=== PATIENT | male | born 1980 | race Caucasian/White ===

== ENCOUNTER 2019-11-16 03:30 | Emergency (ER) | payer OTHER, SELFPAY ==
--- NOTE | 2019-11-16 03:32 | ED_ITS ---
HPI - General Adult General Chief complaint: Anxiety Stated complaint: had tingling in arms/pain in chest/thursday Time Seen by Provider: 11/16/19 03:32 Source: patient Mode of arrival: Ambulatory Limitations: no limitations History of Present Illness HPI narrative: Patient is a 39-year-old male with a history of atrial fibrillation longstanding history of gastroesophageal reflux disease. He is not currently on any medications for these issues. He states that he gets heartburn/pain in his chest almost on a daily basis. He states that he has tried medications in the past for his reflux disease but it has not provided any relief. He states he has never seen a GI doctor in the past. He does not drink alcohol. He occasionally uses a vape pen. He does not use anti-inflammatories or aspirin. He has no change in the color of his stool. He states that approximately 24 hours ago he had pain in his chest which caused an increase in hangs anxiety. He states that he checked his heart rate at the time any did not think that he was in AFib. He states that did radiate to his back. He is not currently having any symptoms. He has not had any symptoms in the past 24 hours. He states that the reason he came in to the emergency department now was because he wanted to get checked to make sure he was not having a heart attack. Patient currently is asymptomatic. Related Data Allergies Allergy/AdvReac Type Severity Reaction Status Date / Time hydrocodone [HYDROCODONE] AdvReac Severe ANGER Unverified 07/08/17 12:01 Review of Systems Constitutional Constitutional: Denies fever(s) Cardiovascular Cardiovascular: Reports chest pain, Denies rapid heart rate and Denies dyspnea Respiratory Respiratory: Denies dyspnea Gastrointestinal Gastrointestinal: Denies melena, Denies bloating, Denies change in bowel habits and Reports nausea Genitourinary Genitourinary: Denies dysuria Genitourinary: Denies dysuria Musculoskeletal Musculoskeletal: Denies arthralgias and Denies myalgias Integumentary/Breasts Skin/Breast: Denies lesions and Denies rash Neurologic Neurologic: Denies behavioral changes Psychiatric Psychiatric: Reports anxiety and Denies behavioral changes Hematologic/Lymphatic Hematologic/Lymphatic: Denies easy bleeding and Denies easy bruising Patient History Medical History Atrial fibrillation (Acute) Social History Smoking Status: Current every day smoker Exam Initial Vital Signs Initial Vital Signs: Vital Signs Temperature 97.8 F 11/16/19 03:39 Pulse Rate 73 11/16/19 03:39 Respiratory Rate 15 11/16/19 03:39 Blood Pressure 138/85 11/16/19 03:39 Pulse Oximetry 100 11/16/19 03:39 Const General: cooperative, comfortable and well developed Limitations: mental status not altered HENMT Head: normal to inspection and normocephalic Resp Effort & Inspection: normal respiratory effort Auscultation: clear to auscultation bilaterally Cardio Rate: regular rate Rhythm: regular rhythm Pulses: radial pulses present GI Inspection: non-distended Palpation: soft Skin Lesions: no lesions Rashes: no rashes Neuro General: patient alert and patient awake Cognition: normal cognition Speech: speech normal Extrem General: normal to inspection and capillary refill normal Psych Appearance: grossly normal and well kempt Scores GCS [place] coma scale eye opening: Spontaneous [place] coma scale verbal response: Orientated [place] coma scale motor response: Obey commands [place] coma scale total score: 15 Course Orders Ordered: ED Orders 11/16/19 03:34 XR chest 1V Stat 11/16/19 03:36 EKG-12 Lead Stat Vital Signs Vital signs: Vital Signs - 8 hr 11/16/19 03:39 Temperature 97.8 F Pulse Rate 73 Respiratory Rate 15 Blood Pressure 138/85 Pulse Oximetry 100 Medical Decision Making Imaging Data Chest x-ray: Attestation: I personally reviewed and interpreted this imaging study as follows: My Impression: No acute changes, no pneumonia, no pneumothorax ECG Data Attestation: I personally reviewed and interpreted this ECG as follows: Prior ECG tracings: not available for review Interpretation: Sinus rhythm Ventricular rate is 79 Normal axis Normal QRS Normal QTC No ST T wave changes MDM Narrative Medical decision making narrative: Patient is currently asymptomatic and has been for approximately 24 hours. Patient admits that he has had daily reflux disease that is uncontrolled. He states sometimes he gets so bad that he feels like he is having heart attack and that is what happened last evening is what brought him in emergency department today. His EKG is unremarkable. Chest x- ray is unremarkable. I do have low suspicion that his symptoms are ACS. We did discuss his reflux disease. Does not appear that he has any active GI bleeding. We did discuss the use of proton pump inhibitors. He is given examples of these medications. He was also asking for information about finding a primary doctor in this area. He states that his current primary doctor ?does not listen to me ?and has not send him to see a GI provided. I did inform him that it is important for him to see a GI provider. I do suspect that he should have a upper endoscopy. He does state that sometimes he has problems swallowing which I suspect are strictures related to his longstanding reflux disease. Feel patient be safely discharged home without further workup here in the ER. He was given return precautions and follow-up instructions. He expressed understanding and agreement. Discharge Plan Departure Patient Disposition: Home Clinical Impression: Gastroesophageal reflux disease Qualifiers: Esophagitis presence: esophagitis presence not specified Qualified Code(s): K21.9 - Gastro-esophageal reflux disease without esophagitis Instructions: Gastroesophageal Reflux Disease (Alternative Therapy), DI for Gastroesophageal Reflux Disease (GERD), GERD Diet Activity Restrictions/Additional Instructions: You can contact the health resource is coordinator here at [facility] at [phone]. This individual can help you establish a primary provider here in [place]. I do recommend that you talk with your current primary provider or your new primary provider about a referral to see Gastroenterology. Also recommend that you start taking what is called a proton pump inhibitor (PPI) examples of these medicines include Omeprazole/Prilosec Esomeprazole/Nexium Lansoprazole/Prevacid Pantoprazole/Protonix and others. These medicines can be purchased [id number]. I recommend that you choose 1 of these medications and start taking it on a daily basis like we discussed. Return to the emergency department for any new or worsening symptoms
--- NOTE | 2019-11-16 03:34 | DI.RAD.S_ITS ---
PROCEDURE: XR CHEST 1V INDICATIONS: chest pain TECHNIQUE: One view of the chest was acquired. COMPARISON: None. FINDINGS: Surgical changes and devices: None. Lungs and pleura: Lungs are clear. No pleural effusions or pneumothorax. Mediastinum: Mediastinal contours appear normal. Heart size is normal. Bones and chest wall: No suspicious bony lesions. Overlying soft tissues appear unremarkable. IMPRESSION: No acute cardiopulmonary abnormalities or focal airspace disease. Dictated by: Deacon Irwin M.D. on 11/16/2019 at 7:19 Approved by: Deacon Irwin M.D. on 11/16/2019 at 7:20
[2019-11-16 03:38] VITALS: PULSE 80; O2SAT 100
[2019-11-16 03:39] VITALS: BP 138/85; PULSE 73; RESP 15; TEMP 36.6; O2SAT 100; BMI 23.1
[2019-11-16 04:00] VITALS: BP 135/84; PULSE 71; RESP 22; O2SAT 98
== END 2019-11-16 04:13 | disposition home or self-care (01) ==
PROVIDERS: Emergency Provider Emergency Medicine
DX: K21.9 Gastro-esophageal reflux disease without esophagitis (principal); I48.91 Unspecified atrial fibrillation; R07.9 Chest pain, unspecified
CPT/HCPCS: 71045; 93005; 93010; 99283

== ENCOUNTER 2020-04-18 12:13 | Emergency (ER) | payer SELFPAY ==
[2020-04-18 12:15] VITALS: BP 123/85; PULSE 76; RESP 16; TEMP 36.2; O2SAT 100; BMI 23.2
--- NOTE | 2020-04-18 12:42 | ED.URI ---
HPI - URI/Sore Throat <CHER Doe - Last Filed: 04/18/20 12:59> General Chief Complaint: Upper Respiratory Symptoms Stated Complaint: Covid test-have cold symptoms Time Seen by Provider: 04/18/20 12:29 Source: patient Mode of arrival: Ambulatory Limitations: no limitations History of Present Illness HPI Narrative: This is a 39-year-old male, former smoker, who has past medical history for AFib from heavy alcohol use presents to ED with concerns for COVID infection. Patient reports chest congestion, sneezing, runny nose, watery eyes, mild body aches, productive cough, with slight short of breath for last 3 days. Patient does not know known COVID exposures. Patient does have environmental allergies to pollen with similar symptoms in the past. Patient denies headache, losing sense of smell or taste, abdominal pain, chest pain, diarrhea, or fever. Related Data Allergies Allergy/AdvReac Type Severity Reaction Status Date / Time hydrocodone [HYDROCODONE] AdvReac Severe ANGER Unverified 07/08/17 12:01 Review of Systems <CHER Doe - Last Filed: 04/18/20 12:59> Review of Systems Narrative: General: Denies fever, chills, fatigue, malaise, sweats. HEENT: See HPI Respiratory: See HPI Cardiovascular: Denies chest pain, palpitations, orthopnea, edema. Gastrointestinal: Denies nausea, vomiting, abdominal pain, diarrhea, constipation, melena. : Denies dysuria, frequency, incontinence, hematuria, urinary retention. Musculoskeletal: See HPI Skin: Denies rash, skin lesions, or other. Neurologic: Denies weakness, headache, numbness, change in speech, confusion, seizures, incoordination. Psychiatric: No concerning psychosocial issues. 12-point review of systems is negative except for those stated above. Patient History <CHER Doe - Last Filed: 04/18/20 12:59> Medical History (Updated 04/18/20 @ 12:53 by HCER Doe) Atrial fibrillation Social History Smoking Status: Former smoker Smoking Status: Former smoker tobacco type: vaping Substance Use Type: does not use Exam <CHER Doe - Last Filed: 04/18/20 12:59> Narrative Exam Narrative: GEN: Alert, oriented x 3, well appearing and nourished, and in no acute distress. Head: Normal cephalic, atraumatic. No scalp or temporal tenderness, palpable mass or rash. EYES: Pupils are equal, round, and reactive to light and accommodation. Extraocular muscles are intact bilaterally. There is no subconjunctival hemorrhage, exudate and sclera non-icteric. ENT: Hearing grossly intact. Airway patent. Neck: Trachea in midline. No JVD, non-tender without lymphadenopathy. No masses or thyroid megaly. Supple, non-tender and no meningeal signs. CARDIAC: Normal regular rate and rhythm without murmurs, gallops, or rubs. No chest wall tenderness. No peripheral edema, cyanosis or pallor. Capillary refill is less than 2 seconds. RESPIRATORY: Lungs are clear to auscultate bilaterally. No cough, wheezes, rales, or rhonchi. No stridor, respiratory distress, increase work of breathing, or accessary muscle used. ABD: Abdomen soft, nontender and non-distended. No guarding or rebound tenderness to palpate. Bowel sounds are normal in all 4 quadrants. There is no palpable masses or organomegaly. EXT: Full painless ROM of all extremities with no loss of sensation, strength, effusion or edema. SKIN: Warm, dry, normal color for patient. No erythema, lesions or rash over visible areas. BACK: Nontender without deformity or crepitance. No flank tenderness. NEUROLOGICAL: Alert and oriented to place, time and person. Sensation and motor function intact bilaterally. No facial droops, dysphasia. PSYCHIATRIC: Good judgement and reason, without hallucinations, abnormal affect or abnormal behaviors during the examination. Patient is not suicidal. Initial Vital Signs Initial Vital Signs: Vital Signs Temperature 97.1 F L 04/18/20 12:15 Pulse Rate 76 04/18/20 12:15 Respiratory Rate 16 04/18/20 12:15 Blood Pressure 123/85 04/18/20 12:15 Pulse Oximetry 100 04/18/20 12:15 <Costa Bahena DO - Last Filed: 04/18/20 13:03> Initial Vital Signs Initial Vital Signs: Vital Signs Temperature 97.1 F L 04/18/20 12:15 Pulse Rate 76 04/18/20 12:15 Respiratory Rate 16 04/18/20 12:15 Blood Pressure 123/85 04/18/20 12:15 Pulse Oximetry 100 04/18/20 12:15 Scores <Otoniel MesaCHER delatorre - Last Filed: 04/18/20 12:59> GCS [place] coma scale eye opening: Spontaneous [place] coma scale verbal response: Orientated [place] coma scale motor response: Obey commands [place] coma scale total score: 15 Course <Otoniel MesaCHER delatorre - Last Filed: 04/18/20 12:59> Orders Ordered: ED Orders 04/18/20 12:26 COVID19 Stat Vital Signs Vital signs: Vital Signs - 8 hr 04/18/20 12:15 Temperature 97.1 F L Pulse Rate 76 Respiratory Rate 16 Blood Pressure 123/85 Pulse Oximetry 100 <Costa Bahena DO - Last Filed: 04/18/20 13:03> Orders Ordered: ED Orders 04/18/20 12:26 COVID19 Stat Vital Signs Vital signs: Vital Signs - 8 hr 04/18/20 12:15 Temperature 97.1 F L Pulse Rate 76 Respiratory Rate 16 Blood Pressure 123/85 Pulse Oximetry 100 MDM - URI/Sore Throat <Otoniel MesaCHER delatorre - Last Filed: 04/18/20 12:59> Differential Diagnosis Differential diagnosis: Likely upper respiratory infection and viral infection Medical Records Attestation: I reviewed the patient's medical records. Lab Data Attestation: I reviewed the patient's lab results. Labs: Lab Results 04/18/20 Range/Units 12:26 SARS-CoV-2 (PCR) Negative (Negative) MDM Narrative Medical decision making narrative: This is a 39-year-old male who has concerns for COVID infection. COVID test is negative. Physical exam is unremarkable. Advise continue with social distancing and good hand hygiene. His symptoms may due to seasonal allergy vs upper respiratory infection. Advised supportive care treatment at this time. Return precautions were discussed with patient and he verbalized understanding in agreement with the treatment plan. <Costa Bahena DO - Last Filed: 04/18/20 13:03> Lab Data Labs: Lab Results 04/18/20 Range/Units 12:26 SARS-CoV-2 (PCR) Negative (Negative) Discharge Plan Departure Patient Disposition: Home Clinical Impression: Upper respiratory infection Qualifiers: URI type: unspecified URI Qualified Code(s): J06.9 - Acute upper respiratory infection, unspecified Instructions: DI for Viral Upper Respiratory Infection -- Adult Activity Restrictions/Additional Instructions: You have been diagnosed with [upper respiratory infection. COVID test was negative. The symptoms you describe is similar to seasonal allergy as well.]. What to do: *Take your medications as directed. *Follow up with your primary care provider in 2-3 days, call for an appointment. Let them know you were seen in the ED and that we asked you to be seen in follow up. *Return to ED if you have any new, worsening, or concerning symptoms, such as [fever, short of breath, chest pain, unable to tolerate fluids, or any acute concerns]. Referrals: Memo Appiah DO [Primary Care Provider] - <Costa Bahena DO - Last Filed: 04/18/20 13:03> Cosign ED Attending Cosignature Attestation: Dr Bahena Co-Sign Statement: I was available for consultation during this patient's emergency department visit. This chart is signed by myself for administrative purposes only. I did not have direct contact with this patient during this visit. They were seen independently by the APC.
[2020-04-18 12:50] LABS: COVID19 -Nasal RAPID Negative (Negative)
== END 2020-04-18 13:01 | disposition home or self-care (01) ==
PROVIDERS: Emergency Medicine; Emergency Provider Nurse Practitioner Family; PCP Family Medicine
DX: J06.9 Acute upper respiratory infection, unspecified (principal); R05 Cough; R06.02 Shortness of breath; I48.91 Unspecified atrial fibrillation; Z20.822 Contact with and (suspected) exposure to COVID-19
CPT/HCPCS: 87635; 99281; 99282; C9803

== ENCOUNTER 2020-07-18 18:02 | Observation (INO) | payer OTHER, SELFPAY ==
[2020-07-18] VITALS (10 sets, daily range): BP systolic 111–120; BP diastolic 59–83; PULSE 67–86; RESP 14–52; TEMP 36.3–36.6; O2SAT 99–100; BMI 23.7
--- NOTE | 2020-07-18 18:13 | DI.RAD.S_ITS ---
PROCEDURE: XR CHEST 1V INDICATIONS: chest pain TECHNIQUE: One view of the chest was acquired. COMPARISON: [facility], CR, XR CHEST 1V, 11/16/2019, 3:36. FINDINGS: Surgical changes and devices: None. Lungs and pleura: No consolidation. Minimal prominence of the pulmonary interstitial markings similar to the prior exam from 2019. No pleural effusions or pneumothorax. Mediastinum: Mediastinal contours appear normal. Heart size is normal. Bones and chest wall: No suspicious bony lesions. Overlying soft tissues appear unremarkable. IMPRESSION: No acute cardiopulmonary abnormality. Dictated by: Carlos Multani M.D. on 07/18/2020 at 18:24 Approved by: Carlos Multani M.D. on 07/18/2020 at 18:25
[2020-07-18 18:25] LABS: Add Manual Diff / Slide Review NO; Basophils Absolute Auto 100 /uL (0-100); Basophils Percent Auto 1.2 % (0-2); Eosinophils Absolute Auto 200 /uL (0-450); Eosinophils Percent Auto 2.8 % (2-4); Hematocrit 45.9 % (41-53); Lymphocytes Absolute Auto 1500 /uL (1100-4500); Lymphocytes Percent Auto 27.4 % (25-40); Mean Corpuscular HGB Conc 34.9 % (30-36); Mean Corpuscular Hemoglobin 29.7 PG (26-34); Mean Corpuscular Volume 85.1 fL (80-100); Monocytes Absolute Auto 500 /uL (0-900); Monocytes Percent Auto 9.2 % (3-14); Neutrophils Absolute Auto 3400 /uL (1500-7000); Neutrophils Percent Auto 59.4 % (50-75); Platelet Count 188 X10^3/uL (150-400); Red Blood Cell Count 5.39 X10^6/uL (4.5-5.9); Red Cell Distribution Width 12.7 % (11.6-14.8); White Blood Cell Count 5.7 X10^3/uL (4.5-11.0)
[2020-07-18 18:32] LABS: Prothrombin Time 11.5 SECONDS (10.1-12.7)
[2020-07-18 18:35] LABS: PTT Partial Thromboplastin Tim 34 SECONDS (26.4-36.2)
[2020-07-18 18:42] LABS: Alanine Aminotransferase 33 IU/L (<50); Albumin 3.9 g/dL (3.5-5.0); Albumin Globulin Ratio 1.4 (1.0-2.8); Alkaline Phosphatase 91 U/L (38-126); Aspartate Aminotransferase 31 IU/L (17-59); BUN Creatinine Ratio 20.5 (6-22); Bilirubin Total 0.6 mg/dL (0.2-1.3); Blood Urea Nitrogen 17 mg/dL (9-20); Carbon Dioxide 26 mmol/L (22-32); Chloride 106 mmol/L (98-107); Creatine Kinase 94 U/L (55-170); Estimated Glomerular Filt Rate > 60.0 mL/min (>60); Globulin 2.8 g/dL (1.7-4.1); Glucose 86 mg/dL (70-100); HEMOLYSIS 19 (0-50); Lipase 55 U/L (23-300); Potassium 4.4 mmol/L (3.4-5.1); Sodium 139 mmol/L (137-145); Total Protein 6.7 g/dL (6.3-8.2)
[2020-07-18 18:53] LABS: Troponin I < 0.012 ng/mL (0.01-0.034)
--- NOTE | 2020-07-18 19:31 | ED_ITS ---
HPI - Chest Pain General Chief Complaint: Chest Pain Stated Complaint: cardiac pain Time Seen by Provider: 07/18/20 19:03 Source: patient Mode of arrival: Ambulatory Limitations: no limitations History of Present Illness HPI narrative: Patient is a 39-year-old male. No prior cardiac history diagnosis. Had a father who had a heart attack and at the age of 48 here for evaluation of left-sided chest pain. Patient states that a couple days ago he was at a baseball game when he developed left-sided chest discomfort. Was hard for him to describe exactly how he fell but he did state that it was a pressure. It lasted for at least an hour and did get somewhat worse when he was walking back to his car. He then improved/resolved after he was resting in his car for period of time. Since that time he has had off and on left-sided chest discomfort. His last episode was last evening. He states that it did not get worse with palpation or movement or breathing. Has never had risk stratification testing despite his father having early onset of coronary artery disease. Related Data Home Medications Medication Instructions Recorded Confirmed No Known Home Medications 07/18/20 07/18/20 Allergies Allergy/AdvReac Type Severity Reaction Status Date / Time hydrocodone [HYDROCODONE] AdvReac Severe ANGER Verified 07/18/20 18:09 Review of Systems Constitutional Constitutional: Denies fatigue, Denies fever(s) and Denies headache(s) Eyes Eyes: Denies change in vision ENT Ears, Nose, Mouth, and Throat: Denies headache(s) and Denies sore throat Cardiovascular Cardiovascular: Reports chest pain and Denies dyspnea Respiratory Respiratory: Denies dyspnea Gastrointestinal Gastrointestinal: Denies abdominal pain, Denies nausea and Denies vomiting Genitourinary Genitourinary: Denies dysuria Genitourinary: Denies dysuria Musculoskeletal Musculoskeletal: Denies arthralgias and Denies myalgias Integumentary/Breasts Skin/Breast: Denies rash Neurologic Neurologic: Denies behavioral changes and Denies headache(s) Psychiatric Psychiatric: Denies behavioral changes Endocrine Endocrine: Denies fatigue Hematologic/Lymphatic On Anticoagulants: No Allergic/Immunologic Allergic/Immunologic: Denies urticaria Patient History Medical History Atrial fibrillation Personal history of alcoholism Tobacco abuse Surgical History (Updated 07/18/20 @ 22:18 by JANE Williamson) History of lumbar discectomy Family History (Updated 07/18/20 @ 22:18 by JANE Williamson) Father Myocardial infarction Mother Depression Dementia Social History household members: spouse Smoking Status: Former smoker alcohol intake: former Smoking Status: Former smoker tobacco type: vaping Substance Use Type: marijuana Exam Initial Vital Signs Initial Vital Signs: Vital Signs Temperature 97.8 F 07/18/20 18:10 Pulse Rate 72 07/18/20 18:10 Respiratory Rate 14 07/18/20 18:10 Blood Pressure 120/78 07/18/20 18:10 Pulse Oximetry 99 07/18/20 18:10 Const General: cooperative, comfortable and well developed Limitations: mental status not altered HENMT Head: normal to inspection and normocephalic Chest Chest: No crepitus and No tenderness Resp Effort & Inspection: normal respiratory effort Auscultation: clear to auscultation bilaterally Cardio Rate: regular rate Rhythm: regular rhythm GI Inspection: non-distended Palpation: soft Skin Lesions: no lesions Rashes: no rashes Neuro General: patient alert, patient awake, patient oriented x3 and moves all extremities Extrem General: normal to inspection, capillary refill normal and No edema Psych Appearance: grossly normal and well kempt Scores HEART Score Heart Score history: Moderately Suspicious Heart Score EKG: Non-Specific repolarization disturbance Heart Score Age: < 45 years old Heart Score risk factors: 1-2 risk factors Heart Score troponin: < or = to normal limit Heart Score Total: 3 Course Orders Ordered: ED Orders 07/18/20 18:13 XR chest 1V Stat EKG-12 Lead Stat 07/18/20 18:14 Complete Blood Count AUTO DIFF Stat Comprehensive Metabolic Panel Stat Lipase Stat Partial Thromboplastin Time Stat Prothrombin Time INR Stat Troponin & CK Cardiac Panel Stat 07/18/20 18:41 Lipid Panel Routine 07/18/20 19:43 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) Stat 07/18/20 20:24 EC echo doppler complete Urgent 07/19/20 00:00 Troponin I Q6H 07/19/20 06:00 Troponin I Q6H Acetaminophen (Acetaminophen 325 Mg Tablet) 650 mg PO Q6HR PRN PRN Reason: Fever/Mild Pain (1-3) Enoxaparin Sodium (Enoxaparin 40 Mg/0.4 Ml Syringe) 40 mg SUBCUT DAILY ELLE Lorazepam (Lorazepam 0.5 Mg Tablet) 0.5 mg PO Q4HR PRN PRN Reason: Anxiety Morphine Sulfate (Morphine 2 Mg/Ml Inj) 2 mg IV Q5MIN PRN PRN Reason: Chest Pain Naloxone HCl (Naloxone 0.4 Mg/Ml Vial) 0.2 mg IV Q2MIN PRN PRN Reason: Opiate Reversal Nitroglycerin (Nitroglycerin 0.4 Mg Sl Tab) 0.4 mg SL [id number] PRN PRN Reason: Chest Pain Discontinued Medications Aspirin (Aspirin 81 Mg Chew Tab) 324 mg PO NOW ONE Stop: 07/18/20 19:32 Last Admin: 07/18/20 19:42 Dose: 324 mg Documented by: HERVE Vital Signs Vital signs: Vital Signs - 8 hr 07/18/20 18:10 Temperature 97.8 F Pulse Rate 72 Respiratory Rate 14 Blood Pressure 120/78 Pulse Oximetry 99 MDM - Chest Pain Lab Data Attestation: I reviewed the patient's lab results. Result diagrams: 07/18/20 18:14 07/18/20 18:14 Labs: Lab Results 07/18/20 07/18/20 07/18/20 Range/Units 18:14 18:14 18:14 WBC 5.7 (4.5-11.0) X10^3/uL RBC 5.39 (4.5-5.9) X10^6/uL Hgb 16.0 (13.5-17.5) g/dL Hct 45.9 (41-53) % MCV 85.1 (80-100) fL MCH 29.7 (26-34) PG MCHC 34.9 (30-36) % RDW 12.7 (11.6-14.8) % Plt Count 188 (150-400) X10^3/uL Neut % (Auto) 59.4 (50-75) % Lymph % (Auto) 27.4 (25-40) % [place] % (Auto) 9.2 (3-14) % Eos % (Auto) 2.8 (2-4) % Baso % (Auto) 1.2 (0-2) % Neut # (Auto) 3400 (2658-9968) /uL Lymph # (Auto) 1500 (6589-8013) /uL [place] # (Auto) 500 (0-900) /uL Eos # (Auto) 200 (0-450) /uL Baso # (Auto) 100 (0-100) /uL PT 11.5 (10.1-12.7) SECONDS INR 1.0 (0.9-1.3) APTT 34 (26.4-36.2) SECONDS Sodium 139 (137-145) mmol/L Potassium 4.4 (3.4-5.1) mmol/L Chloride 106 (98-107) mmol/L Carbon Dioxide 26 (22-32) mmol/L BUN 17 (9-20) mg/dL Creatinine 0.83 (0.66-1.25) mg/dL Estimated GFR > 60.0 (>60) mL/min BUN/Creatinine Ratio 20.5 (6-22) Glucose 86 (70-100) mg/dL Calcium 9.0 (8.4-10.2) mg/dL Magnesium (1.6-2.3) mg/dL Total Bilirubin 0.6 (0.2-1.3) mg/dL AST 31 (17-59) IU/L ALT 33 (<50) IU/L Alkaline Phosphatase 91 (38-126) U/L Total Creatine Kinase 94 (55-170) U/L CK-MB (CK-2) TNP CK-MB (CK-2) Rel Index TNP Troponin I < 0.012 (0.01-0.034) ng/mL Total Protein 6.7 (6.3-8.2) g/dL Albumin 3.9 (3.5-5.0) g/dL Globulin 2.8 (1.7-4.1) g/dL Albumin/Globulin Ratio 1.4 (1.0-2.8) Triglycerides (35-150) mg/dL Cholesterol (140-199) mg/dL LDL Cholesterol, Calc (<100) mg/dL HDL Cholesterol (40-60) mg/dL Lipase 55 (23-300) U/L SARS-CoV-2 (PCR) (Negative) 07/18/20 07/18/20 07/18/20 Range/Units 18:41 18:41 19:43 WBC (4.5-11.0) X10^3/uL RBC (4.5-5.9) X10^6/uL Hgb (13.5-17.5) g/dL Hct (41-53) % MCV (80-100) fL MCH (26-34) PG MCHC (30-36) % RDW (11.6-14.8) % Plt Count (150-400) X10^3/uL Neut % (Auto) (50-75) % Lymph % (Auto) (25-40) % [place] % (Auto) (3-14) % Eos % (Auto) (2-4) % Baso % (Auto) (0-2) % Neut # (Auto) (8728-5087) /uL Lymph # (Auto) (3678-9869) /uL [place] # (Auto) (0-900) /uL Eos # (Auto) (0-450) /uL Baso # (Auto) (0-100) /uL PT (10.1-12.7) SECONDS INR (0.9-1.3) APTT (26.4-36.2) SECONDS Sodium (137-145) mmol/L Potassium (3.4-5.1) mmol/L Chloride (98-107) mmol/L Carbon Dioxide (22-32) mmol/L BUN (9-20) mg/dL Creatinine (0.66-1.25) mg/dL Estimated GFR (>60) mL/min BUN/Creatinine Ratio (6-22) Glucose (70-100) mg/dL Calcium (8.4-10.2) mg/dL Magnesium 2.1 (1.6-2.3) mg/dL Total Bilirubin (0.2-1.3) mg/dL AST (17-59) IU/L ALT (<50) IU/L Alkaline Phosphatase (38-126) U/L Total Creatine Kinase (55-170) U/L CK-MB (CK-2) CK-MB (CK-2) Rel Index Troponin I (0.01-0.034) ng/mL Total Protein (6.3-8.2) g/dL Albumin (3.5-5.0) g/dL Globulin (1.7-4.1) g/dL Albumin/Globulin Ratio (1.0-2.8) Triglycerides 132 (35-150) mg/dL Cholesterol 179 (140-199) mg/dL LDL Cholesterol, Calc 106 H (<100) mg/dL HDL Cholesterol 47 (40-60) mg/dL Lipase (23-300) U/L SARS-CoV-2 (PCR) Negative (Negative) Imaging Data Chest x-ray: Radiologist's Impression: [facility] [place] [id number] ReportSigned Patient: Shadi Mueller WMR#: [id number]: [id number]:[id number]/Sex: 39 / MDate of Service: 07/18/20Loc: EDAccession Number: [id number] Procedure: XR chest 1V Ordering Provider: Costa Bahena D.O. PROCEDURE: XR CHEST 1V INDICATIONS: chest pain TECHNIQUE: One view of the chest was acquired. COMPARISON: [facility], , XR CHEST 1V, 11/16/2019, 3:36. FINDINGS: Surgical changes and devices: None. Lungs and pleura: No consolidation. Minimal prominence of the pulmonary interstitial markings similar to the prior exam from 2019. No pleural effusions or pneumothorax. Mediastinum: Mediastinal contours appear normal. Heart size is normal. Bones and chest wall: No suspicious bony lesions. Overlying soft tissues appear unremarkable. IMPRESSION: No acute cardiopulmonary abnormality. Dictated by: Carlos Multani M.D. on 07/18/2020 at 18:24 Approved by: Carlos Multani M.D. on 07/18/2020 at 18:25 ECG Data Attestation: I personally reviewed and interpreted this ECG as follows: Prior ECG tracings: not available for review Interpretation: Sinus rhythm Ventricular rate is 70 Normal axis Normal QRS QTC 4-3 Changes consistent with early repolarization Nonspecific ST T wave changes MDM Narrative Medical decision making narrative: Patient is asymptomatic. Has nonspecific changes on his EKG. This last episode of chest discomfort was last evening. His troponin is negative although he has not had any discomfort and almost 24 hours. He does have a significant family history with father dying of a heart attack at the age of 48. Patient has never had any risk stratification prior to today. Given his symptoms over the past couple days and his family history I do feel admission to the hospital for stress testing is warranted. I discussed this with him and he agrees with this. Discussed the case with LEDA Goodman the night Hospital provider who will admit for further evaluation and treatment. Discharge Plan Departure Patient Disposition: Admitted as Observation Clinical Impression: Chest pain Admit Date/Time: 07/18/20 20:20 Admit Provider: Almaz Goodman
[2020-07-18] MEDS: ASPIRIN 81 MG CHEW TAB 324 MG PO (19:42)
--- NOTE | 2020-07-18 20:24 | DI.ECHO.S_ITS ---
[facility] +---------+ : : [address] [place] : : : : [id number] : : : : Phone: [phone]+ Echocardiogram Report + + :Name: CUONG HASSAN Study Date: 07/19/2020 Height: 67 in : :[facility] ReadingLocation: Weight: 190 lb : : Gender: Male BSA: 2.0 m2 : :: 1980 Age: 39 yrs BP: 108/56 mmHg: :Reason For Study: CHEST PRESSURE : :Ordering Physician: NAVID, : :ALANA Performed By: Peggy Flor : :Referring: ALANA SHOEMAKER : + + Interpretation Summary 1) Normal left ventricular size and thickness with mildly reduced function (EF 45-50%). 2) Upper normal right ventricular size with low normal function. 3) No significant valvular abnormalities. 4) No prior Echo available for comparison. Procedure: A two-dimensional transthoracic echocardiogram with color flow and Doppler was performed. The study quality was technically adequate. The patient had an echocardiogram, but there is no comparison study available. The patient was in sinus bradycardia with heart rates between 55-66 bpm during the exam. Left Ventricle: The left ventricle is normal in size and wall thickness. The ejection fraction is estimated to be 45-50%. Diastolic parameters suggest probable normal left ventricular diastolic function and normal filling pressures. Right Ventricle: The right ventricle is at the upper limits of normal in size. Right ventricular systolic function is at the lower limits of normal. Atria: The left atrial size is normal. Right atrial size is normal. There is no Doppler evidence for an interatrial shunt. Mitral Valve: The mitral valve is normal in structure and function. There is no mitral regurgitation noted. Aortic Valve: The aortic valve is trileaflet. The aortic valve opens well. There is no aortic valve stenosis. No aortic regurgitation is present. Tricuspid Valve: The tricuspid valve is normal in structure and function. Pulmonary artery pressures cannot be estimated because of the lack of a measurable TR jet velocity but the IVC suggests a CVP of around 8 mmHg. There is trace tricuspid regurgitation. Pulmonic Valve: The pulmonic valve is not well visualized. There is no pulmonic valvular regurgitation. Great Vessels: The aortic root is normal size. The dimensions of the ascending aorta are normal. The IVC is dilated (diameter is greater than 2.1 cm) yet it collapses greater than 50% with a sniff. This suggests a right atrial pressure of 8 mm Hg. Pericardium/ Pleura There is no pericardial effusion. There is no pleural effusion. MMode/2D Measurements & Calculations LVIDd: 4.5 cm LVOT diam: 2.5 cm LVIDs: 3.2 cm Ao root diam: 3.6 cm FS: 28.3 % asc Aorta Diam: 2.9 cm EPSS: 0.52 cm Ao Arch Diam (Prox Trans): 2.5 cm IVSd: 0.86 cm LVPWd: 0.91 cm LV burgos. diameter/BSA (cm/m^2): 2.3 LV sys. diameter/BSA (cm/m^2): 1.6 LA A2 area: 18.2 cm2 RA long axis: 4.9 cm LA A4 area: 21.4 cm2 RA area: 16.1 cm2 LA length (vol): 5.6 cm RA vol: 45.4 ml LA vol: 58.5 ml RA : 22.9 ml/m2 LA vol index: 29.6 ml/m2 IVC diam: 2.1 cm RVD1 (basal): 4.0 cm TAPSE: 1.7 cm Doppler Measurements & Calculations Ao V2 max: 80.0 cm/sec LVOT Max Alonzo: 66.6 cm/sec Ao V2 mean: 58.9 cm/sec LV V1 max P.8 mmHg Ao max P.6 mmHg LV V1 VTI: 15.1 cm Ao mean P.5 mmHg DENG(I,D): 3.9 cm2 Ao V2 VTI: 18.8 cm DENG(V,D): 4.0 cm2 sev ratio: 0.80 DENG indexed to BSA (cm^2/m^2): 2.0 MV E max alonzo: 49.0 cm/sec PA pr(Accel): 29.3 mmHg MV A max alonzo: 36.7 cm/sec MV E/A: 1.3 Med Peak E' Alonzo: 9.7 cm/sec E/E' med: 5.0 Lat Peak E' Alonzo: 14.8 cm/sec E/E' lat: 3.3 E/e' average: 4.2 MV dec time: 0.29 sec SV(LVOT): 73.0 ml Reading Physician:09:10 AM
--- NOTE | 2020-07-18 20:29 | P.HP_ITS ---
History of Present Illness History of Present Illness Date Patient Seen: 07/18/20 Time Patient Seen: 20:29 Chief complaint: cardiac pain Narrative: Patient is a 39-year-old male Shadi Mueller who presented to the ED with complaints of a chest pressure. Patient's only medical history is for atrial fibrillation, although a notable family history father of an LA at 48 years of age. Patient states a couple days ago he was sitting at a baseball game when he developed left-sided chest pressure that lasted for approximately a couple hours and did not vary based on activity but finally resolved while he was driving in the car he has continued to have several episodes of left-sided chest pressure over the last couple days that come and go, he notes he has ex perienced this in the past and never sought treatment. The patient describes the pain/pressure as sharp, without radiation it varies in intensity usually maintaining and pain of 10/10, and is not relieved by rest or exacerbated by activity. Patient denies diaphoresis, weakness, shortness of breath, headache, swelling of hands or feet, lack of coordination or balance during these chest pain or pressure events. Patient states ?I just get really bad anxiety with this pressure and I have difficulty walking related to the anxiety not weakness. Patient states that he was diagnosed with atrial fibrillation some 20 years ago, he saw Dr. belle rubio 4 years ago for atrial fibrillation and patient was not placed on any anticoagulation at that time. Patient states he felt an episode of atrial fibrillation around [email or web address] at work of 2020 but has had no further issues and does not feel any atrial fib at this time. 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 Patient has a brother and sister with no notable medical history, specifically no cardiovascular history. Patient's admit vitals temp 97.8?, BP 120/78, HR 72, R 14, O2 saturation 99% on room air. All patient's labs CBC CMP, troponins are within normal, EKG normal sinus rhythm without ST or T-wave changes per Dr. Bahena in the ED interpretation, CXR: no acute cardiopulmonary abnormalities noted. 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 Environment Been Physically Hurt or No Threatened By a Person Tobacco & Substance use: Smoking Status Former smoker quit cigarettes 5 years ago, currently vapes with nicotine and smokes marijuana regularly, patient notes history of alcoholism and reports recovery for 2.5 years although notes that he continues to drink occasionally on the weekends. Substance Use Type marijuana Meds Home Medications and Allergies Home Medications Medication Instructions Recorded Confirmed Type No Known Home Medications 07/18/20 07/18/20 History Allergies Allergy/AdvReac Type Severity Reaction Status Date / Time hydrocodone [HYDROCODONE] AdvReac Severe ANGER Verified 07/18/20 18:09 Review of Systems Review of Systems ROS: Yes All systems reviewed with the patient and are negative except as otherwise documented Exam Vital Signs (past 8 hours): - 07/18/20 18:10 Temperature 97.8 F Pulse Rate 72 Respiratory Rate 14 Blood Pressure 120/78 Pulse Oximetry 99 Oxygen Delivery Method Room Air Narrative Exam Narrative: General: Patient is a well-developed, well-nourished in no distress at this time. HEENT: Normocephalic, atraumatic, extraocular muscles intact, oral pharynx is clear and mucous membranes are moist. Neck is supple and symmetric, trachea is midline, no adenopathy, no thyroid enlargement, nontender, no masses palpated. Negative for JVD Chest: Normal AP diameter and contour without kyphoscoliosis, no nasal flaring, retractions, or tachypneic labored Lungs: Auscultation of all lung linda are clear without adventitious sounds, wheezes, rhonchi, or rales. Cardio: S1 & S2 with regular rate and rhythm without murmur, rubs, or gallops, no carotid bruit, no cardiac pulsations present. Abdomen: Soft nontender, negative for organomegaly, or masses. Bowel sounds are present in all 4 quadrants without guarding or rebound, no CVA tenderness. Musculoskeletal: Muscle strength and tone are equal within normal limits, no deformity, crepitus, effusions, cyanosis, clubbing or edema present. Full range of motion intact radial and pedal pulses are normal. Skin: Warm dry and intact without rashes, ulcerations or petechiae. Neuro: Alert and orientated x3, strength is +5/5 in all extremities, sensation to touch intact, no gross deficits noted of cranial nerves. Psych: Patient has a well-kept appearance, appropriate affect, mental status attitude thought context and judgment are appropriate for age. Objective Labs Result Diagrams: 07/18/20 18:14 07/18/20 18:14 Labs: Laboratory Results - last 24 hr 07/18/20 07/18/20 07/18/20 18:14 18:14 18:14 WBC 5.7 RBC 5.39 Hgb 16.0 Hct 45.9 MCV 85.1 MCH 29.7 MCHC 34.9 RDW 12.7 Plt Count 188 Neut % (Auto) 59.4 Lymph % (Auto) 27.4 [place] % (Auto) 9.2 Eos % (Auto) 2.8 Baso % (Auto) 1.2 Neut # (Auto) 3400 Lymph # (Auto) 1500 [place] # (Auto) 500 Eos # (Auto) 200 Baso # (Auto) 100 PT 11.5 INR 1.0 APTT 34 Sodium 139 Potassium 4.4 Chloride 106 Carbon Dioxide 26 BUN 17 Creatinine 0.83 Estimated GFR > 60.0 BUN/Creatinine Ratio 20.5 Glucose 86 Calcium 9.0 Total Bilirubin 0.6 AST 31 ALT 33 Alkaline Phosphatase 91 Total Creatine Kinase 94 CK-MB (CK-2) TNP CK-MB (CK-2) Rel Index TNP Troponin I < 0.012 Total Protein 6.7 Albumin 3.9 Globulin 2.8 Albumin/Globulin Ratio 1.4 Lipase 55 Assessment & Plan Assessment & Plan narrative: Patient is a 39-year-old male admitted for observation regarding acute on chronic left-sided chest pain/pressure due to patient's history of atrial fibrillation without anticoagulation therapy, history of tobacco, marijuana, and alcohol abuse, ongoing vaping which can impair patient's oxygenation and contribute to a cardiopulmonary event. This in addition to a family history of his father's age 48 of myocardial infarction. Patient to have echo and stress test tomorrow, complete risk stratifications, if all findings are within normal limits the patient is expected to go home tomorrow. 1. Acute chest pain/pressure, nonradiating, -recurrent, acute on chronic, present on admission in ED -Rule out myocardial ischemia/infarction, ACS, CAD, aortic dissection. Suspect pain to be musculoskeletal in nature exacerbated by patient's anxiety, but will rule out cardiovascular risks. -echo and stress ordered for tomorrow -Patient is a former smoker but continues to vape and smokes marijuana. Family history: father of an LA at age 48. Patient's admit vitals temp 97.8?, BP 120/78, HR 72, R 14, O2 saturation 99% on room air. All patient's labs CBC CMP, Mg, Lipase, cholesterol, & troponins are within normal, EKG normal sinus rhythm without ST or T-wave changes per Dr. Bahena in the ED interpretation, chest x-ray no acute cardiopulmonary abnormalities noted. Heart score: 3 --patient to be admitted for observation, monitored on tele medicine, vital signs q.4 hours, intake and output monitored Q shift, weight measure daily, diet:Regular, IV: Hep lock -Serial troponins 1 Q 6 hours x3, Ordered:proBNP, TSH, lipids, UA and chest x- ray. -sublingual nitro glycerin 0.4 mg, aspirin 325 mg -In the event of persistent unrelenting chest pain: Order CTA or V/Q scan or CT. Metoprolol 5 mg IV or Cardizem 5 mg to 10 mg IV Q 15 minutes, Beta-dale, nitrates, MS, heparin, Plavix PERC score:0 (PE can be ruled out), Shashi Vasc score: 0, heart score:3 Monitor for hypertensive emergencies with acute end-organ damage, ventricular tachycardia, unstable SVT, hypertension, angina or LA, heart failure, renal function. Shashi Vasc score: - Goals: reducing blood pressure over 24-48 hours, not more than 25-30% in the 1st 24 hours. O2 to keep O2 sats greater than 92% potassium > 4 and Mag > 2 2. Atrial fibrillation, chronic, not present on admission, stable -patient not in AFib upon admit. Patient not on anticoagulation therapy - placed on telemetry. 3. Anxiety, acute on chronic, present on admission -denies suicidal ideation, Anxiety 12/07 -ordered Ativan as needed 4. Vaping with nicotine dependence, acute on chronic, secondary to tobacco and alcohol abuse history, in the setting of marijuana use, not present on admission -encouraged Vaping cessation. Code status: Full code Surrogate decision maker: Spouse Sienna MENDOZA PCR: Negative VTE/DVT prophylaxis: Lovenox 40 mg and SCDs Scores GCS [place] coma scale eye opening: Spontaneous [place] coma scale verbal response: Orientated [place] coma scale motor response: Obey commands [place] coma scale total score: 15 CHADS-VASc Congestive heart failure: no Hypertension: no Age 75 years or older: no Diabetes mellitus: no Stroke, TIA, or TE: no Vascular disease: no Age 65 to 74 years: no Sex category (female): Male CHADS-VASc Score: 0 Wells' Criteria for PE Clinical signs and symptoms of DVT: No PE is #1 Dx or equally likely: No Heart rate > 100: No Immobilization at least 3 days or surg in previous 4 weeks: No History of PE or DVT: No Hemoptysis: No Malignancy w/Treatment within 6 months or palliative: No Wells' PE Score total: 0
[2020-07-18 20:51] LABS: Cholesterol 179 mg/dL (140-199); HDL Cholesterol 47 mg/dL (40-60); LDL Cholesterol Calculated 106 mg/dL (<100); Magnesium 2.1 mg/dL (1.6-2.3); Triglycerides 132 mg/dL (35-150)
[2020-07-18 21:24] LABS: COVID19 - ADMIT (NP swab/PCR) Negative (Negative)
--- NOTE | 2020-07-18 22:27 | PC.NURSE ---
Pt admitted per stretcher from ED for dx chest pain. VSS, pt denies pain at this time. States he is extremely anxious as he watched his father of a heart attack at age 49 when he was 2. Rates his anxiety as a 9/10. Monitor shows NSR, pt has stated history of afib, takes no home meds.
[2020-07-18] MEDS: LORazepam 0.5 MG TABLET PO (22:41)
[2020-07-19 00:18] VITALS: BP 111/59; PULSE 84; RESP 19; TEMP 35.8; O2SAT 99
[2020-07-19 00:57] LABS: NT-proBNP (BNP-Adult 18+) 77 pg/mL (<125)
[2020-07-19 01:00] LABS: Troponin I < 0.012 ng/mL (0.01-0.034)
[2020-07-19 01:54] LABS: TSH w/ Reflex to FT4 1.11 uIU/mL (0.47-4.68)
[2020-07-19 05:24] LABS: Prothrombin Time 11.3 SECONDS (10.1-12.7)
[2020-07-19 05:31] VITALS: BP 108/56; PULSE 63; RESP 20; TEMP 35.9; O2SAT 100
[2020-07-19 05:43] LABS: Troponin I < 0.012 ng/mL (0.01-0.034)
[2020-07-19 06:07] LABS: RBC Urine None Seen (0-5/HPF); WBC Urine None Seen (0-5/HPF)
[2020-07-19 06:08] LABS: Amorphous Sediment Urine 1+; Appearance Urine UA CLEAR; Bacteria Urine Occasional (0-1); Bilirubin Urine UA NEGATIVE (NEGATIVE); Color Urine UA YELLOW; Culture Indicated Urine Cult Not Indicated; Glucose Urine UA NEGATIVE (Negative); Ketones Urine UA NEGATIVE (NEGATIVE); Leukocyte Esterase Urine UA NEGATIVE (NEGATIVE); Mucus Urine 1+ (Negative); Nitrite Urine UA NEGATIVE (Negative); Occult Blood Urine UA NEGATIVE (Negative); Protein Urine UA NEGATIVE (Negative); Specific Gravity Urine UA 1.025 (1.000-1.035); Squamous Epithelial Cell Urine 0-1 /HPF (0-5/HPF); Urobilinogen Urine UA 0.2 E.U./dL (0.2); pH Urine UA 6.5 (4.5-8.0)
[2020-07-19 08:00] VITALS: BP 113/69; PULSE 61; RESP 17; TEMP 36.1; O2SAT 99
[2020-07-19] MEDS: ENOXAPARIN 40 MG/0.4 ML SYRINGE SUBCUT (08:44)
[2020-07-19 12:00] VITALS: BP 116/70; PULSE 66; RESP 18; TEMP 36.7; O2SAT 97
--- NOTE | 2020-07-19 14:11 | CM.DANOTE ---
Discharge Planning/Care Management DCP: assessment: case received, EMR reviewed and discussed case in Team Rounds. Dr. Blackwell stated that he expected pt would be able to d/c to home later today but testing was in process. He stated that pt was aware of same. Pt is a 39 year old male who admitted last night to care of hospitalist team. PCP: Memo Appiah Payer: Vanessa ROLAND A d/c order has been in place all day but the d/c order details remain partially completed. Went to room to check in with pt found pt out of room and his Sandor Hurtado laying with eyes closed and appearing to be deeply asleep in recliner/bed next to pt's bed. RN Gurpreet confirms that pt is now having the second part of his stress test and that Dr. Blackwell continues to expect he will be able to go home later today. She states no concerns are noted on her end re this d/c plan....will plan to check in when pt returns and follow for any prn needs. P: home if stable for same and clinic followup. CM Discharge Assessment Start: 07/19/20 14:10 Freq: Status: Active Protocol: Document 07/19/20 14:10 ITV (Rec: 07/19/20 14:11 ITV [id number]) Discharge Planning Assessment Advance Directives? No History Provided By Medical Record Prior Living Arrangements Apartment/Condo Household Members spouse Independent with ADL's Yes Is patient alert and oriented? Yes Discharge Plan Home
--- NOTE | 2020-07-19 14:55 | PC.NURSE ---
Patient back from test, left to go home for a little bit while waiting for results. Continue to follow, anticipate discharge if stress test WNL.
[2020-07-19 16:00] VITALS: BP 114/57; PULSE 79; RESP 15; TEMP 36.4; O2SAT 98
--- NOTE | 2020-07-19 17:46 | PC.NURSE ---
Discharge Note Patient A&O, VSS, RA, no complaints of chest pain or shortness of breath. Discharge packet reviewed with patient and , all questions and concerns addressed. PIV/tele discontinued. All belongings packed and given to patient and . Patient taken down via wheelchair to POV.
--- NOTE | 2020-07-19 17:48 | PM.DS.1 ---
History of Present Illness History of Present Illness Chief complaint: cardiac pain Narrative: Patient is a 39-year-old male Shadi Mueller who presented to the ED with complaints of a chest pressure. Patient's only medical history is for atrial fibrillation, although a notable family history father of an IL at 48 years of age. Patient states a couple days ago he was sitting at a baseball game when he developed left-sided chest pressure that lasted for approximately a couple hours and did not vary based on activity but finally resolved while he was driving in the car he has continued to have several episodes of left-sided chest pressure over the last couple days that come and go, he notes he has experienced this in the past and never sought treatment. The patient describes the pain/pressure as sharp, without radiation it varies in intensity usually maintaining and pain of 10/10, and is not relieved by rest or exacerbated by activity. Patient denies diaphoresis, weakness, shortness of breath, headache, swelling of hands or feet, lack of coordination or balance during these chest pain or pressure events. Patient states ?I just get really bad anxiety with this pressure and I have difficulty walking related to the anxiety not weakness. Patient states that he was diagnosed with atrial fibrillation some 20 years ago, he saw Dr. belle rubio 4 years ago for atrial fibrillation and patient was not placed on any anticoagulation at that time. Patient states he felt an episode of atrial fibrillation around at work of 2020 but has had no further issues and does not feel any atrial fib at this time. 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 Patient has a brother and sister with no notable medical history, specifically no cardiovascular history. Patient's admit vitals temp 97.8?, BP 120/78, HR 72, R 14, O2 saturation 99% on room air. All patient's labs CBC CMP, troponins are within normal, EKG normal sinus rhythm without ST or T-wave changes per Dr. Bahena in the ED interpretation, CXR: no acute cardiopulmonary abnormalities noted. Heart score: 3 Discharge Providers Provider Date of admission: 07/18/20 20:20 Discharge Date: 07/19/20 Primary care physician: Memo Appiah DO Discharge provider: Clark Blackwell MD Summary Hospital Course Discharge Diagnosis: 1. Throat discomfort/Questionable chest pain 2. Atrial fibrillation in history 3. Anxiety 4. 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 History of alcohol abuse, now sober Hospital Course: Mr. Mueller was admitted with what he described as throat discomfort, some discomfort with swallowing. Per previous notes there was concern for chest pain which he denied to me. He had an EKG done with no acute findings. Troponins negative x3. Stress test unremarkable and low risk study. ECHO showed an EF of 45-50% but he had no evidence of congestive heart failure. It was thought his significant previous alcohol abuse was the etiology of this finding. He admitted to much more throat discomfort, and had been on PPI in the past, it was thought his discomfort was more related to reflux than cardiac issues. He should follow up with his PCP to see if PPI resolves his symptoms. Discussion was had to encourage him to quit smoking Code status: Full Discharge time: 35 minutes Status at Discharge Cognitive/behavioral status at discharge: oriented Functional status at discharge: independent ambulation Overall status at discharge: patient is back to baseline Time Spent with Patient Time spent: Greater than 30 minutes Time spent discussing smoking cessation with patient: 3 to 10 minutes Exam Vital Signs (past 8 hours): - 07/19/20 12:00 07/19/20 16:00 Temperature 98.0 F 97.6 F Pulse Rate 66 79 Respiratory Rate 18 15 Blood Pressure 116/70 114/57 L Pulse Oximetry 97 98 Oxygen Delivery Method Room Air Oxygen Flow Rate 0 Narrative Exam Narrative: General: no distress at this time. HEENT: PERRL, moist mucous membranes, no JVD Lungs: clear bilaterally Cardio: regular rate and rhythm without murmur, rubs, or gallops Abdomen: Soft nontender, negative for organomegaly, or masses. normal bowel sounds Musculoskeletal: Muscle strength and tone are equal within normal limits Skin: Warm dry and intact without rashes Neuro: Alert and orientated x3, strength is +5/5 in all extremities, sensation to touch intact Psych: pleasant mood Objective Labs Result Diagrams: 07/18/20 18:14 07/18/20 18:14 Labs: Laboratory Results - last 24 hr 07/18/20 07/18/20 07/18/20 18:14 18:14 18:14 WBC 5.7 RBC 5.39 Hgb 16.0 Hct 45.9 MCV 85.1 MCH 29.7 MCHC 34.9 RDW 12.7 Plt Count 188 Neut % (Auto) 59.4 Lymph % (Auto) 27.4 [place] % (Auto) 9.2 Eos % (Auto) 2.8 Baso % (Auto) 1.2 Neut # (Auto) 3400 Lymph # (Auto) 1500 [place] # (Auto) 500 Eos # (Auto) 200 Baso # (Auto) 100 PT 11.5 INR 1.0 APTT 34 Sodium 139 Potassium 4.4 Chloride 106 Carbon Dioxide 26 BUN 17 Creatinine 0.83 Estimated GFR > 60.0 BUN/Creatinine Ratio 20.5 Glucose 86 Calcium 9.0 Magnesium Total Bilirubin 0.6 AST 31 ALT 33 Alkaline Phosphatase 91 Total Creatine Kinase 94 CK-MB (CK-2) TNP CK-MB (CK-2) Rel Index TNP Troponin I < 0.012 NT-Pro-B Natriuret Pep Total Protein 6.7 Albumin 3.9 Globulin 2.8 Albumin/Globulin Ratio 1.4 Triglycerides Cholesterol LDL Cholesterol, Calc HDL Cholesterol Lipase 55 TSH Urine Color Urine Appearance Urine pH Ur Specific [place] Urine Protein Urine Glucose (UA) Urine Ketones Urine Occult Blood Urine Nitrate Urine Bilirubin Urine Urobilinogen Ur Leukocyte Esterase Urine RBC Urine WBC Ur Squamous Epith Cells Amorphous Sediment Urine Bacteria Urine Mucus Ur Culture Indicated? Nasal Screen MRSA (PCR) SARS-CoV-2 (PCR) 07/18/20 07/18/20 07/18/20 18:41 18:41 19:43 WBC RBC Hgb Hct MCV MCH MCHC RDW Plt Count Neut % (Auto) Lymph % (Auto) [place] % (Auto) Eos % (Auto) Baso % (Auto) Neut # (Auto) Lymph # (Auto) [place] # (Auto) Eos # (Auto) Baso # (Auto) PT INR APTT Sodium Potassium Chloride Carbon Dioxide BUN Creatinine Estimated GFR BUN/Creatinine Ratio Glucose Calcium Magnesium 2.1 Total Bilirubin AST ALT Alkaline Phosphatase Total Creatine Kinase CK-MB (CK-2) CK-MB (CK-2) Rel Index Troponin I NT-Pro-B Natriuret Pep Total Protein Albumin Globulin Albumin/Globulin Ratio Triglycerides 132 Cholesterol 179 LDL Cholesterol, Calc 106 H HDL Cholesterol 47 Lipase TSH Urine Color Urine Appearance Urine pH Ur Specific [place] Urine Protein Urine Glucose (UA) Urine Ketones Urine Occult Blood Urine Nitrate Urine Bilirubin Urine Urobilinogen Ur Leukocyte Esterase Urine RBC Urine WBC Ur Squamous Epith Cells Amorphous Sediment Urine Bacteria Urine Mucus Ur Culture Indicated? Nasal Screen MRSA (PCR) SARS-CoV-2 (PCR) Negative 07/18/20 07/19/20 07/19/20 21:00 00:24 00:24 WBC RBC Hgb Hct MCV MCH MCHC RDW Plt Count Neut % (Auto) Lymph % (Auto) [place] % (Auto) Eos % (Auto) Baso % (Auto) Neut # (Auto) Lymph # (Auto) [place] # (Auto) Eos # (Auto) Baso # (Auto) PT INR APTT Sodium Potassium Chloride Carbon Dioxide BUN Creatinine Estimated GFR BUN/Creatinine Ratio Glucose Calcium Magnesium Total Bilirubin AST ALT Alkaline Phosphatase Total Creatine Kinase CK-MB (CK-2) CK-MB (CK-2) Rel Index Troponin I < 0.012 NT-Pro-B Natriuret Pep 77 Total Protein Albumin Globulin Albumin/Globulin Ratio Triglycerides Cholesterol LDL Cholesterol, Calc HDL Cholesterol Lipase TSH Urine Color Urine Appearance Urine pH Ur Specific [place] Urine Protein Urine Glucose (UA) Urine Ketones Urine Occult Blood Urine Nitrate Urine Bilirubin Urine Urobilinogen Ur Leukocyte Esterase Urine RBC Urine WBC Ur Squamous Epith Cells Amorphous Sediment Urine Bacteria Urine Mucus Ur Culture Indicated? Nasal Screen MRSA (PCR) Negative for mrsa SARS-CoV-2 (PCR) 07/19/20 07/19/20 07/19/20 00:24 04:50 04:50 WBC RBC Hgb Hct MCV MCH MCHC RDW Plt Count Neut % (Auto) Lymph % (Auto) [place] % (Auto) Eos % (Auto) Baso % (Auto) Neut # (Auto) Lymph # (Auto) [place] # (Auto) Eos # (Auto) Baso # (Auto) PT 11.3 INR 1.0 APTT Sodium Potassium Chloride Carbon Dioxide BUN Creatinine Estimated GFR BUN/Creatinine Ratio Glucose Calcium Magnesium Total Bilirubin AST ALT Alkaline Phosphatase Total Creatine Kinase CK-MB (CK-2) CK-MB (CK-2) Rel Index Troponin I < 0.012 NT-Pro-B Natriuret Pep Total Protein Albumin Globulin Albumin/Globulin Ratio Triglycerides Cholesterol LDL Cholesterol, Calc HDL Cholesterol Lipase TSH 1.11 Urine Color Urine Appearance Urine pH Ur Specific [place] Urine Protein Urine Glucose (UA) Urine Ketones Urine Occult Blood Urine Nitrate Urine Bilirubin Urine Urobilinogen Ur Leukocyte Esterase Urine RBC Urine WBC Ur Squamous Epith Cells Amorphous Sediment Urine Bacteria Urine Mucus Ur Culture Indicated? Nasal Screen MRSA (PCR) SARS-CoV-2 (PCR) 07/19/20 06:05 WBC RBC Hgb Hct MCV MCH MCHC RDW Plt Count Neut % (Auto) Lymph % (Auto) [place] % (Auto) Eos % (Auto) Baso % (Auto) Neut # (Auto) Lymph # (Auto) [place] # (Auto) Eos # (Auto) Baso # (Auto) PT INR APTT Sodium Potassium Chloride Carbon Dioxide BUN Creatinine Estimated GFR BUN/Creatinine Ratio Glucose Calcium Magnesium Total Bilirubin AST ALT Alkaline Phosphatase Total Creatine Kinase CK-MB (CK-2) CK-MB (CK-2) Rel Index Troponin I NT-Pro-B Natriuret Pep Total Protein Albumin Globulin Albumin/Globulin Ratio Triglycerides Cholesterol LDL Cholesterol, Calc HDL Cholesterol Lipase TSH Urine Color Yellow Urine Appearance Clear Urine pH 6.5 Ur Specific [place] 1.025 Urine Protein Negative Urine Glucose (UA) Negative Urine Ketones Negative Urine Occult Blood Negative Urine Nitrate Negative Urine Bilirubin Negative Urine Urobilinogen 0.2 Ur Leukocyte Esterase Negative Urine RBC None seen Urine WBC None seen Ur Squamous Epith Cells 0-1 /hpf Amorphous Sediment 1+ Urine Bacteria Occasional (0-1) Urine Mucus 1+ H Ur Culture Indicated? Cult not indicated Nasal Screen MRSA (PCR) SARS-CoV-2 (PCR) [facility] Medical History Atrial fibrillation Personal history of alcoholism Tobacco abuse Surgical History (Updated 07/18/20 @ 22:18 by JANE Williamson) History of lumbar discectomy Family History (Updated 07/18/20 @ 22:18 by JANE Williamson) Father Myocardial infarction Mother Depression Dementia Social History household members: spouse Smoking Status: Former smoker alcohol intake: former Discharge Plan Discharge Plan Patient Disposition: Home Provider Discharge Comment: Mr. Mueller came in with chest pain and some throat irritation. He has noticed his throat difficulty since his 20s. He has been told he has some narrowing in his throat. And he has been on a PPI in the past for GERD. For his chest pain he had stress test that showed no concerning findings He had an ECHO that showed a slightly reduced ejection fraction at 50% (normal is 55-60%). He had no evidence of heart failure. This is most likely related to his alcohol use and he has done well to avoid it now. He had no evidence of heart attack. Discharge orders & Medications Prescriptions: New pantoprazole 40 mg tablet,delayed release (DR/EC) 40 mg PO DAILY Qty: 30 RF: 0 Follow up/Referrals: Memo Appiah DO [Primary Care Provider] - Diet/Activity/Treatments Diet: Low-fat, Low-sodium and Low-cholesterol Visit Report/Discharge Packet Instructions: Lifestyle Habits May Lower Lifetime Risk of Heart Failure in Men, DI for Chest Pain, Why It Is Important to Quit Smoking If You Have Heart Failure Discharge Data Primary Care Provider: Memo Appiah Attending Provider: Almaz Goodman [facility] [place] The patient has current or prior documentation of left ventricular ejection fraction (LVEF) less than 40%, or moderate or severely depressed left ventricular systolic function.: No
--- NOTE | 2020-07-25 10:25 | DI.NM.S_ITS ---
DATE OF SERVICE: PROCEDURE: Exercise perfusion study. INDICATIONS: Chest pain with history of paroxysmal AFib. The patient also has history of alcohol abuse and tobacco abuse. RADIOPHARMACEUTICAL: 25 millicurie technetium-99m Myoview IV was injected at stress and 13.0 millicurie technetium-99m Myoview IV was injected at rest. CARDIAC STRESS: The patient underwent exercise perfusion study under the supervision of an attending staff. He walked on [place] protocol for 12 minutes 36 seconds, achieved 91 percent of target heart rate and blunted blood pressure response. Resting blood pressure 110/60. Peak blood pressure 124/58. The patient achieved 12.8 METs of workload. Functional aerobic impairment -4 percent. No chest pain or anginal symptoms. Baseline EKG revealed sinus rhythm. During stress, there were no convincing ischemic changes. No significant arrhythmias seen. RAW DATA: There is increased radiolucent shadow near the inferior border of the heart. GATED STUDY: Stress LV ejection fraction 66 percent without any obvious wall motion abnormalities. Resting end-diastolic volume 127 mL. TID ratio 0.68, which is within normal limits. Lung/heart ratio 0.33, which is within normal limits. MYOCARDIAL PERFUSION SCAN: Stress supine, resting supine and stress prone images were compared to each other. Stress supine and resting supine images revealed moderate-size, moderately decreased perfusion of inferior wall extending into the inferoapex and inferior septum, which got significantly improved during the stress prone images, suggestive of tissue attenuation artifact. Prone images remaining have mildly decreased perfusion of basal inferior wall. CONCLUSION: I will call this study likely a normal myocardial perfusion study with evidence of tissue attenuation artifact, which got significantly improved during prone images, as described above. Good exercise tolerance. The patient walked on [place] protocol for 12 minutes and 36 seconds. Normal heart rate response. Blunted blood pressure response. No significant EKG ischemic changes or significant arrhythmias. The stress left ventricular ejection fraction 66 percent. Overall, this is a low-risk myocardial perfusion scan. Shadi Mueller - LISA/brenna/isabel doc#: [id number]/job#: [id number] dd: 07/19/2020 17:12:00 dt: 07/19/2020 17:22:00 DICTATING MD/COPIES TO: Jorje Shin MD COPIES MNE: TIMOTHY;
== END 2020-07-19 17:45 | disposition home or self-care (01) ==
LOC: ED 19:34 → AC 20:20 → ICU 20:35
PROVIDERS: Admitting Provider Nurse Practitioner Family; Emergency Provider Emergency Medicine; PCP Family Medicine; Referring Provider Emergency Medicine; Visit Provider Nurse Practitioner Family
DX: R07.9 Chest pain, unspecified (principal); K21.9 Gastro-esophageal reflux disease without esophagitis; I48.91 Unspecified atrial fibrillation; F41.9 Anxiety disorder, unspecified; F17.290 Nicotine dependence, other tobacco product, uncomplicated; F12.20 Cannabis dependence, uncomplicated; F10.11 Alcohol abuse, in remission; Z20.822 Contact with and (suspected) exposure to COVID-19
CPT/HCPCS: 36415; 71045; 78452; 80053; 80061; 81001; 82550; 83690; 83735; 83880; 84443; 84484; 85025; 85610; 85730; 87635; 87797; 93005; 93010; 93017; 93306; 96372; 99283; 99284; C9803; G0378; A9502; J1650

== ENCOUNTER 2024-05-12 07:16 | Observation (INO) | payer SELFPAY ==
[2020-07-18 21:16] VITALS: BMI 23.7
[2024-05-12] VITALS (50 sets, daily range): BP systolic 97–131; BP diastolic 55–87; PULSE 87–142; RESP 9–71; TEMP 36.4–36.8; O2SAT 94–100; BMI 26.1
--- NOTE | 2024-05-12 07:42 | EKG_ITS ---
[id number], [place] [id number] Test Date: 2024-05-12 Pat Name: Shadi Mueller Department: Room: Gender: Male Business Process Specialist: MANGO : 1980 Requested By: Order Number: [id number] Reading MD: Trent Sparrow MD Measurements Intervals [place] Rate: 125 P: FL: QRS: 33 QRSD: 84 T: 46 QT: 274 QTc: 395 Interpretive Statements Atrial fibrillation with rapid ventricular response Electronically Signed On 05-13-2024 6:49:27 PST by Trent Sparrow MD
--- NOTE | 2024-05-12 07:42 | DI.RAD.S_ITS ---
PROCEDURE: XR CHEST 1V INDICATIONS: chest pain TECHNIQUE: One view of the chest was acquired. COMPARISON: [facility], CR, XR CHEST 1V, 07/18/2020, 18:15. FINDINGS: Surgical changes and devices: None. Lungs and pleura: Mild pulmonary vascular congestion. No definite focal infiltrate. No pleural effusions or pneumothorax. Mediastinum: Mediastinal contours appear normal. Heart size is normal. Bones and chest wall: No suspicious bony lesions. Overlying soft tissues appear unremarkable. IMPRESSION: Mild congestion. No focal infiltrate, pleural effusion or pneumothorax. Dictated by: Marcos Hargrove M.D. on 05/12/2024 at 8:11 Approved by: Marcos Hargrove M.D. on 05/12/2024 at 8:12
[2024-05-12 07:53] LABS: Prothrombin Time 11.5 SECONDS (9.4-12.5)
[2024-05-12] MEDS: ASPIRIN 81 MG CHEW TAB 324 MG PO (07:55)
[2024-05-12 07:56] LABS: PTT Partial Thromboplastin Tim 34 SECONDS (25.1-36.5)
[2024-05-12 08:00] LABS: Alanine Aminotransferase 26 IU/L (<50); Albumin 3.9 g/dL (3.5-5.0); Albumin Globulin Ratio 1.3 (1.0-2.8); Alkaline Phosphatase 80 U/L (38-126); Aspartate Aminotransferase 36 IU/L (17-59); BUN Creatinine Ratio 20.8 (6-22); Blood Urea Nitrogen 21 mg/dL (9-20); Calcium 8.7 mg/dL (8.4-10.2); Carbon Dioxide 27 mmol/L (22-32); Chloride 107 mmol/L (98-107); Creatine Kinase 56 U/L (55-170); Estimated Glomerular Filt Rate > 60 mL/min (>60); Glucose 104 mg/dL (70-100); Lipase 49 U/L (23-300); Magnesium 1.8 mg/dL (1.6-2.3); Potassium 4.5 mmol/L (3.4-5.1); Sodium 138 mmol/L (137-145); Total Protein 6.9 g/dL (6.3-8.2)
[2024-05-12 08:03] LABS: HEMOLYSIS 60 (0-50)
[2024-05-12 08:10] LABS: NT-proBNP (BNP-Adult 18+) 1970 pg/mL (<125); Troponin I < 0.012 ng/mL (0.01-0.034)
--- NOTE | 2024-05-12 08:20 | ED_ITS ---
HPI - Arrhythmia/Palpitations General Chief Complaint: Arrhythmia/Palpitations Stated Complaint: afib since thursday Time Seen by Provider: 05/12/24 08:18 Source: patient and family Mode of arrival: Ambulatory Limitations: no limitations History of Present Illness HPI narrative: 43-year-old male history of atrial fibrillation since age 17 had an ablation in 2021 no longer anticoagulated. Patient states came home from work Thursday, 2 days ago use marijuana oil pen, coughed hard, and felt palpitations, dizziness. 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 Patient states has been persistent since. No chest pain or pressure no shortness of breath, no fevers no cold cough or congestion symptoms. No nausea or vomiting. No issues with bowel movements there than no stool for the last day or 2. No dysuria urgency or frequency. No new swelling in extremities. Patient states history of atrial fibrillation since age 17, was anticoagulated but stopped about a month after his ablation in 2020. Patient was off all medications was seen at [facility] had labs and EKG was started on diltiazem extended release 120 mg had a dose yesterday at 11 is not due yet for his next dose to 11:00 a.m. today but has not had any improvement. Denies any drug allergies. No tobacco, denies any regular alcohol states used to drink regularly, uses marijuana denies any other recreational drugs. Patient is ablation was performed by Dr. Ocasio was seeing him regularly but has not seen him in awhile as he lost insurance for a period of time. He did call Dr. Ocasio's office yesterday. Does not have a primary care physician. Related Data Previous Rx's Medication Instructions Recorded pantoprazole 40 mg tablet,delayed 40 mg PO DAILY #30 tabs 07/19/20 release apixaban 5 mg tablet (Eliquis) 5 mg PO BID #60 tabs 05/13/24 metoprolol succinate 50 mg 50 mg PO DAILY #30 tabs 05/13/24 tablet,extended release 24 hr Allergies Allergy/AdvReac Type Severity Reaction Status Date / Time hydrocodone [HYDROCODONE] AdvReac Severe ANGER Verified 07/18/20 18:09 Review of Systems Review of Systems ROS Unobtainable: All systems reviewed & are unremarkable except as noted in HPI and below Patient History Medical History Atrial fibrillation Personal history of alcoholism Tobacco abuse Surgical History History of lumbar discectomy Family History Father Myocardial infarction Mother Depression Dementia Social History household members: spouse Smoking Status: Former smoker alcohol intake: former Smoking Status: Former smoker tobacco type: vaping Exam Narrative Exam Narrative: GENERAL: Alert and oriented x three, male in mild distress HEENT: Head normocephalic, atraumatic, EOMI, pupils reactive, face symmetric, moist mucous membranes NECK: Supple, full range of motion CARDIOVASCULAR: AFib RVR rate and rhythm without murmurs, rubs or gallops. No edema bilateral lower extremities. No JVD. RESPIRATORY: Breath sounds equal bilaterally, no wheezes rales or rhonchi. No tachypnea accessory muscle use. ABDOMEN: Soft, nontender. Normoactive bowel sounds all 4 quadrants. No guarding or rebound, rigidity, no mass : No CVA tenderness EXTREMITIES: Normal range of motion, no clubbing or edema. Neurovascularly intact NEUROLOGICAL: Cranial nerves II through XII grossly intact. Moving all extremities SKIN: Warm, dry, no petechiae, no rashes or lesions. Initial Vital Signs Initial Vital Signs: Vital Signs Temperature 97.6 F 05/12/24 07:25 Pulse Rate 142 H 05/12/24 07:25 Respiratory Rate 18 05/12/24 07:25 Blood Pressure 103/58 L 05/12/24 07:25 Pulse Oximetry 100 05/12/24 07:25 Oxygen Delivery Method Room Air 05/12/24 07:25 Course Orders Ordered: Discontinued Medications Apixaban (Apixaban 5 Mg Tablet) 5 mg PO BID [facility] Last Admin: 05/13/24 09:14 Dose: 5 mg Documented By: Admin: 05/12/24 21:20 Dose: 5 mg Documented By: MARKO Aspirin (Aspirin 81 Mg Chew Tab) 324 mg PO NOW ONE Stop: 05/12/24 07:43 Last Admin: 05/12/24 07:55 Dose: 324 mg Documented By: RACHELLE Digoxin (Digoxin 500 Mcg/2 Ml Ampul) 500 mcg IV NOW ONE Stop: 05/13/24 04:11 Last Admin: 05/13/24 04:21 Dose: 500 mcg Documented By: MARKO Diltiazem HCl (Diltiazem 25 Mg/5 Ml Sdv) 10 mg IV NOW ONE Stop: 05/12/24 08:34 Last Admin: 05/12/24 09:10 Dose: 10 mg Documented By: RACHELLE Diltiazem HCl (Diltiazem 30 Mg Tablet) 30 mg PO Q6HR [facility] Last Admin: 05/12/24 15:58 Dose: Not Given Documented By: PATI Diltiazem HCl (Diltiazem 25 Mg/5 Ml Sdv) 10 mg IV NOW ONE Stop: 05/13/24 04:11 Last Admin: 05/13/24 04:35 Dose: 10 mg Documented By: MARKO Diltiazem HCl (Diltiazem Sr 60 Mg) 120 mg PO NOW ONE Stop: 05/13/24 10:10 Last Admin: 05/13/24 10:28 Dose: 120 mg Documented By: SWETHA Sodium Chloride (Normal Saline 0.9%) 1,000 mls @ 1,000 mls/hr IV BOLUS ONE Stop: 05/12/24 09:32 Last Infusion: 05/12/24 10:05 Dose: Infused Documented By: Infusion: 05/12/24 10:00 Dose: 0 mls/hr Documented By: Admin: 05/12/24 09:10 Dose: 1,000 mls/hr Documented By: RACHELLE Diltiazem HCl 125 mg/ Sodium (Chloride) 125 mls @ 5 mls/hr IV TITRATE [facility]; Protocol Last Titration: 05/12/24 14:30 Dose: 0 mg/hr, 0 mls/hr Documented By: Titration: 05/12/24 13:20 Dose: 0 mg/hr, 0 mls/hr Documented By: Titration: 05/12/24 11:32 Dose: 5 mg/hr, 5 mls/hr Documented By: Titration: 05/12/24 10:25 Dose: 10 mg/hr, 10 mls/hr Documented By: Admin: 05/12/24 09:46 Dose: 5 mg/hr, 5 mls/hr Documented By: RACHELLE Sodium Chloride (Normal Saline 0.9%) 500 mls @ 1,000 mls/hr IV BOLUS ONE Stop: 05/13/24 02:45 Last Infusion: 05/13/24 03:15 Dose: Infused Documented By: Admin: 05/13/24 02:35 Dose: 1,000 mls/hr Documented By: MARKO Metoprolol Tartrate (Metoprolol Ir 25 Mg Tablet) 25 mg PO BID [facility] Last Admin: 05/12/24 14:24 Dose: 25 mg Documented By: PATI Metoprolol Tartrate (Metoprolol Ir 25 Mg Tablet) 25 mg PO TID [facility] Last Admin: 05/13/24 09:16 Dose: 25 mg Documented By: Admin: 05/12/24 21:20 Dose: 25 mg Documented By: MARKO Metoprolol Tartrate (Metoprolol Ir 25 Mg Tablet) 25 mg PO NOW ONE Stop: 05/12/24 23:19 Last Admin: 05/12/24 23:42 Dose: 25 mg Documented By: MARKO Metoprolol Tartrate (Metoprolol Tartrate 5 Mg/5 Ml Inj) 5 mg IV Q2HR PRN PRN Reason: For HR>120 Naloxone HCl (Naloxone 0.4 Mg/Ml Vial) 0.2 mg IV Q2MIN PRN PRN Reason: Opiate Reversal Sodium Chloride (Sodium Chloride 0.9% Flush) 10 ml IV PRN PRN PRN Reason: Flush Last Admin: 05/13/24 04:36 Dose: 10 ml Documented By: Admin: 05/13/24 04:26 Dose: 10 ml Documented By: Admin: 05/13/24 02:43 Dose: 10 ml Documented By: MARKO Sodium Chloride (Sodium Chloride 0.9% Flush) 10 ml IV BID [facility] Last Admin: 05/13/24 09:16 Dose: 10 ml Documented By: SWETHA Vital Signs Vital signs: Vital Signs - 8 hr 05/12/24 07:25 05/12/24 07:40 05/12/24 08:00 Temperature 97.6 F Pulse Rate 142 H 140 H Respiratory Rate 18 25 H Blood Pressure 103/58 L 116/81 Pulse Oximetry 100 100 Oxygen Delivery Method Room Air 05/12/24 08:00 05/12/24 08:15 05/12/24 08:15 Temperature Pulse Rate 126 H 131 H Respiratory Rate 14 Blood Pressure 109/77 Pulse Oximetry 99 98 Oxygen Delivery Method Room Air 05/12/24 08:30 05/12/24 08:30 05/12/24 08:45 Temperature Pulse Rate 128 H Respiratory Rate 17 Blood Pressure 105/78 115/87 Pulse Oximetry 98 Oxygen Delivery Method 05/12/24 08:45 05/12/24 09:00 05/12/24 09:00 Temperature Pulse Rate 132 H 131 H Respiratory Rate 15 20 Blood Pressure 113/69 Pulse Oximetry 97 98 Oxygen Delivery Method 05/12/24 09:10 05/12/24 09:12 05/12/24 09:12 Temperature Pulse Rate 132 H 135 H Respiratory Rate 23 Blood Pressure 113/69 106/69 Pulse Oximetry 97 Oxygen Delivery Method 05/12/24 09:16 05/12/24 09:16 05/12/24 09:30 Temperature Pulse Rate 116 H 97 H Respiratory Rate 20 18 Blood Pressure 103/70 Pulse Oximetry 97 98 Oxygen Delivery Method 05/12/24 09:46 05/12/24 09:48 05/12/24 09:48 Temperature Pulse Rate 122 H 114 H Respiratory Rate 9 L Blood Pressure 113/79 113/79 Pulse Oximetry 100 Oxygen Delivery Method Room Air 05/12/24 10:00 05/12/24 10:00 05/12/24 10:15 Temperature Pulse Rate 100 H Respiratory Rate 12 Blood Pressure 105/73 107/68 Pulse Oximetry 99 Oxygen Delivery Method Room Air 05/12/24 10:15 05/12/24 10:30 05/12/24 10:30 Temperature Pulse Rate 97 H 98 H Respiratory Rate 21 21 Blood Pressure 104/78 Pulse Oximetry 99 99 Oxygen Delivery Method 05/12/24 10:45 05/12/24 10:45 05/12/24 11:00 Temperature Pulse Rate 94 H Respiratory Rate 20 Blood Pressure 105/56 L 106/62 Pulse Oximetry 100 Oxygen Delivery Method 05/12/24 11:00 05/12/24 11:15 05/12/24 11:15 Temperature Pulse Rate 95 H 99 H Respiratory Rate 19 16 Blood Pressure 99/55 L Pulse Oximetry 100 99 Oxygen Delivery Method 05/12/24 11:30 Temperature Pulse Rate 92 H Respiratory Rate 14 Blood Pressure Pulse Oximetry 98 Oxygen Delivery Method MDM - Arrhythmia/Palpitations Lab Data 05/13/24 06:05 05/13/24 06:05 Labs: Lab Results 02/13/25 Range/Units 07:25 WBC 7.4 (4.5-11.0) X10^3/uL RBC 5.99 H (4.5-5.9) X10^6/uL Hgb 17.4 (13.5-17.5) g/dL Hct 51.4 (41-53) % MCV 85.9 (80-100) fL MCH 29.1 (26-34) PG MCHC 33.9 (30-36) % RDW 13.2 (11.6-14.8) % Plt Count 219 (150-400) X10^3/uL Neut % (Auto) 66.0 (50-75) % Lymph % (Auto) 22.3 L (25-40) % [place] % (Auto) 7.8 (3-14) % Eos % (Auto) 3.1 (2-4) % Baso % (Auto) 0.8 (0-2) % Neut # (Auto) 4900 (0134-6418) /uL Lymph # (Auto) 1700 (0362-8953) /uL [place] # (Auto) 600 (0-900) /uL Eos # (Auto) 200 (0-450) /uL Baso # (Auto) 100 (0-100) /uL PT 11.5 (9.4-12.5) SECONDS INR 1.0 (0.9-1.3) APTT 34 (25.1-36.5) SECONDS Sodium 138 (137-145) mmol/L Potassium 4.5 (3.4-5.1) mmol/L Chloride 107 (98-107) mmol/L Carbon Dioxide 27 (22-32) mmol/L BUN 21 H (9-20) mg/dL Creatinine 1.01 (0.66-1.25) mg/dL Estimated GFR > 60 (>60) mL/min BUN/Creatinine Ratio 20.8 (6-22) Glucose 104 H (70-100) mg/dL Calcium 8.7 (8.4-10.2) mg/dL Magnesium 1.8 (1.6-2.3) mg/dL Total Bilirubin 1.0 (0.2-1.3) mg/dL AST 36 (17-59) IU/L ALT 26 (<50) IU/L Alkaline Phosphatase 80 (38-126) U/L Total Creatine Kinase 56 (55-170) U/L Troponin I < 0.012 (0.01-0.034) ng/mL NT-Pro-B Natriuret Pep 1970 H (<125) pg/mL Total Protein 6.9 (6.3-8.2) g/dL Albumin 3.9 (3.5-5.0) g/dL Globulin 3.0 (1.7-4.1) g/dL Albumin/Globulin Ratio 1.3 (1.0-2.8) Lipase 49 (23-300) U/L Imaging Data Chest x-ray: Radiologist's Impresson: [address] [address] XRay Report Signed Patient: Shadi Mueller MR#: [id number] : 1980 Acct:[id number] Age/Sex: 43 / M Date of Service: 05/12/24 Loc: ED Accession Number: [id number] Procedure: XR chest 1V Ordering Provider: Heidy Aguilar D.O. PROCEDURE: XR CHEST 1V INDICATIONS: chest pain TECHNIQUE: One view of the chest was acquired. COMPARISON: [facility], CR, XR CHEST 1V, 07/18/2020, 18:15. FINDINGS: Surgical changes and devices: None. Lungs and pleura: Mild pulmonary vascular congestion. No definite focal infiltrate. No pleural effusions or pneumothorax. Mediastinum: Mediastinal contours appear normal. Heart size is normal. Bones and chest wall: No suspicious bony lesions. Overlying soft tissues appear unremarkable. IMPRESSION: Mild congestion. No focal infiltrate, pleural effusion or pneumothorax. Dictated by: Marcos Hargrove M.D. on 05/12/2024 at 8:11 Approved by: Marcos Hargrove M.D. on 05/12/2024 at 8:12 ECG Data Attestation: I personally reviewed and interpreted this ECG as follows: Prior ECG tracings: available for review Interpretation: AFib with RVR rate of 125 QRS 84 QTC of 395, no acute ST elevation depression noted. Patient has prior from 07/18/2020 which shows sinus rhythm with sinus arrhythmia at that time. MDM Narrative Medical decision making narrative: 43-year-old male history of atrial fibrillation around age 17 had ablation in 2020 and has been off anticoagulants and regular medications since then. Was found to be in atrial fibrillation on Thursday at [facility], was given prescription for oral diltiazem which he has been taking. EKG shows AFib with rapid ventricular response Chest x-ray shows mild congestion no focal infiltrate, pleural effusion or pneumothorax. Labs CBC shows a white count of 7.4 hemoglobin of 17 platelets of 219. Coags are negative electrolytes show a potassium of 4.5 Mag of 1.8 BUN 21 creatinine is 1.01 with a glucose of 104 troponins less than 0.012 with a BNP of 1970. Patient's systolic blood pressure has a little bit soft but has heart rate bouncing between 120s and 140s we will give fluids as well as diltiazem IV patient may require drip. He was not currently a candidate for cardioversion has been 48 hours since onset without anticoagulation. Patient had an echo in 2020 which showed an EF of 45-50% mildly reduced otherwise no significant valvular abnormalities upper normal right ventricular size with low-normal function. Patient received saline and 10 mg of diltiazem had some improvement of rate but still tachycardic, we will place patient on diltiazem gtt Consult with hospitalist Dr. Gonzales, asked for consult with EP, Dr. Ocasio to see if he would be candidate for ELAINE and cardioversion. Spoke with Dr. Ocasio at 11:55 a.m. would not recommend ELAINE and cardioversion at this time recommends rate control with dealt can add a beta-dlae such as metoprolol succinate as needed patient to follow up with him. Recontacted Dr. Gonzales, reviewed Dr. Ocasio's recommendations. Accepts for inpatient. Discharge Plan Departure Patient Disposition: Admitted As Inpatient Clinical Impression: Atrial fibrillation with rapid ventricular response Admit Date/Time: 05/12/24 12:12 Admit Provider: Stevan Gonzales
[2024-05-12 08:43] LABS: Add Manual Diff / Slide Review NO; Basophils Absolute Auto 100 /uL (0-100); Basophils Percent Auto 0.8 % (0-2); Eosinophils Absolute Auto 200 /uL (0-450); Eosinophils Percent Auto 3.1 % (2-4); Hematocrit 51.4 % (41-53); Hemoglobin 17.4 g/dL (13.5-17.5); Lymphocytes Absolute Auto 1700 /uL (1100-4500); Lymphocytes Percent Auto 22.3 % (25-40); Mean Corpuscular HGB Conc 33.9 % (30-36); Mean Corpuscular Hemoglobin 29.1 PG (26-34); Mean Corpuscular Volume 85.9 fL (80-100); Monocytes Absolute Auto 600 /uL (0-900); Monocytes Percent Auto 7.8 % (3-14); Neutrophils Absolute Auto 4900 /uL (1500-7000); Platelet Count 219 X10^3/uL (150-400); Red Blood Cell Count 5.99 X10^6/uL (4.5-5.9); Red Cell Distribution Width 13.2 % (11.6-14.8); White Blood Cell Count 7.4 X10^3/uL (4.5-11.0)
--- NOTE | 2024-05-12 09:00 | PC.NURSE ---
Pt has had afib since teenager with history of 3 or 4 electrical cardioversions. He had an ablation performed in February 2022 and has not since been on any anticoagulation medications. Pt comes in with bottle of diltiazem pills stating he took one yesterday but does not usually take any medications. Pt was at work 2 days ago, went home and used marijuana. He then layed down and felt terrible with palpitations, near syncope, nausea. Hx alcoholism but sober since 2018.
[2024-05-12] MEDS: SODIUM CHLORIDE 0.9% 1,000 ML 1000 ML IV (09:10)
[2024-05-12] MEDS: dilTIAZem 25 MG/5 ML SDV 10 MG IV (09:10)
[2024-05-12] MEDS: dilTIAZem 125 MG in SODIUM CHLORIDE 0.9% 100 ML IV (09:46)
--- NOTE | 2024-05-12 11:33 | PC.NURSE ---
Dilt titrated to 5mg/hr due to hypotention. HR was 93 and titration discussed with provider and okayyed to change drip rate to 5mg.
--- NOTE | 2024-05-12 12:53 | P.HP_ITS ---
History of Present Illness History of Present Illness Date Patient Seen: 05/12/24 Time Patient Seen: 13:53 Chief complaint: afib since thursday Narrative: The patient is being admitted for observation today for atrial fibrillation with rapid response. He has history of a an ablation in 2021 at [facility]. The patient has not had AFib since until Thursday. He has been AFib since Thursday with racing heart rate. He went would be General where he was given oral diltiazem. He remains in AFib with rapid response and heart rates up to 160. The patient was seen in the ER and started on diltiazem drip. They did alert his bolt cutter, Dr. Ocasio. Recommendations for rate control and oral anticoagulation giving the window and no recommendation for ELAINE cardioversion at [facility] at this time. The patient notes symptoms of tachycardia but no chest pain or dyspnea. He was much better with a diltiazem drip at 5, and he has a heart rate of 78. The patient notes his diltiazem tablets from would be did not control his rate. He was hoping to try a different medication. [facility] Medical History Tobacco abuse Personal history of alcoholism Atrial fibrillation Surgical History History of lumbar discectomy Family History Father Myocardial infarction Mother Depression Dementia Social History household members: spouse Smoking Status: Former smoker alcohol intake: former Meds Home Medications and Allergies Home Medications Medication Instructions Recorded Confirmed Type pantoprazole 40 mg tablet,delayed 40 mg PO DAILY #30 tabs 07/19/20 05/12/24 Rx release Allergies Allergy/AdvReac Type Severity Reaction Status Date / Time hydrocodone [HYDROCODONE] AdvReac Severe ANGER Verified 07/18/20 18:09 Review of Systems Review of Systems Narrative: All else reviewed and otherwise unremarkable except as noted in the history and physical. Exam Vital Signs (past 8 hours): - 05/12/24 07:25 05/12/24 07:40 05/12/24 08:00 Temperature 97.6 F Pulse Rate 142 H 140 H Respiratory Rate 18 25 H Blood Pressure 103/58 L 116/81 Pulse Oximetry 100 100 Oxygen Delivery Method Room Air 05/12/24 08:00 05/12/24 08:15 05/12/24 08:15 Temperature Pulse Rate 126 H 131 H Respiratory Rate 14 Blood Pressure 109/77 Pulse Oximetry 99 98 Oxygen Delivery Method Room Air 05/12/24 08:30 05/12/24 08:30 05/12/24 08:45 Temperature Pulse Rate 128 H Respiratory Rate 17 Blood Pressure 105/78 115/87 Pulse Oximetry 98 Oxygen Delivery Method 05/12/24 08:45 05/12/24 09:00 05/12/24 09:00 Temperature Pulse Rate 132 H 131 H Respiratory Rate 15 20 Blood Pressure 113/69 Pulse Oximetry 97 98 Oxygen Delivery Method 05/12/24 09:10 05/12/24 09:12 05/12/24 09:12 Temperature Pulse Rate 132 H 135 H Respiratory Rate 23 Blood Pressure 113/69 106/69 Pulse Oximetry 97 Oxygen Delivery Method 05/12/24 09:16 05/12/24 09:16 05/12/24 09:30 Temperature Pulse Rate 116 H 97 H Respiratory Rate 20 18 Blood Pressure 103/70 Pulse Oximetry 97 98 Oxygen Delivery Method 05/12/24 09:46 05/12/24 09:48 05/12/24 09:48 Temperature Pulse Rate 122 H 114 H Respiratory Rate 9 L Blood Pressure 113/79 113/79 Pulse Oximetry 100 Oxygen Delivery Method Room Air 05/12/24 10:00 05/12/24 10:00 05/12/24 10:15 Temperature Pulse Rate 100 H Respiratory Rate 12 Blood Pressure 105/73 107/68 Pulse Oximetry 99 Oxygen Delivery Method Room Air 05/12/24 10:15 05/12/24 10:30 05/12/24 10:30 Temperature Pulse Rate 97 H 98 H Respiratory Rate 21 21 Blood Pressure 104/78 Pulse Oximetry 99 99 Oxygen Delivery Method 05/12/24 10:45 05/12/24 10:45 05/12/24 11:00 Temperature Pulse Rate 94 H Respiratory Rate 20 Blood Pressure 105/56 L 106/62 Pulse Oximetry 100 Oxygen Delivery Method 05/12/24 11:00 05/12/24 11:15 05/12/24 11:15 Temperature Pulse Rate 95 H 99 H Respiratory Rate 19 16 Blood Pressure 99/55 L Pulse Oximetry 100 99 Oxygen Delivery Method 05/12/24 11:30 Temperature Pulse Rate 92 H Respiratory Rate 14 Blood Pressure Pulse Oximetry 98 Oxygen Delivery Method Oxygen Delivery Method Room Air Narrative Exam Narrative: NAD, alert and oriented, fluent speech, calm. Normocephalic skull, EOMI, anicteric sclera, symmetric pupils. Oropharynx unremarkable, no droop. Neck supple, midline trachea, no adenopathy. Lungs clear, normal rate and effort. Heart irregular, no murmur gallop or rub. Abdomen is soft, non distended and non tender. Extremities are free of edema. Skin is free of rash or lesions. Joints are not swollen or deformed. Judgment appears to be normal. Objective ECG Impression: Atrial fibrillation with rapid ventricular response Imaging Chest x-ray: Radiologist's impression: Mild congestion. No focal infiltrate, pleural effusion or pneumothorax Labs 05/12/24 07:25 05/12/24 07:25 Labs: Laboratory Results - last 24 hr 05/12/24 07:25 WBC 7.4 RBC 5.99 H Hgb 17.4 Hct 51.4 MCV 85.9 MCH 29.1 MCHC 33.9 RDW 13.2 Plt Count 219 Neut % (Auto) 66.0 Lymph % (Auto) 22.3 L [place] % (Auto) 7.8 Eos % (Auto) 3.1 Baso % (Auto) 0.8 Neut # (Auto) 4900 Lymph # (Auto) 1700 [place] # (Auto) 600 Eos # (Auto) 200 Baso # (Auto) 100 PT 11.5 INR 1.0 APTT 34 Sodium 138 Potassium 4.5 Chloride 107 Carbon Dioxide 27 BUN 21 H Creatinine 1.01 Estimated GFR > 60 BUN/Creatinine Ratio 20.8 Glucose 104 H Calcium 8.7 Magnesium 1.8 Total Bilirubin 1.0 AST 36 ALT 26 Alkaline Phosphatase 80 Total Creatine Kinase 56 Troponin I < 0.012 NT-Pro-B Natriuret Pep 1970 H Total Protein 6.9 Albumin 3.9 Globulin 3.0 Albumin/Globulin Ratio 1.3 Lipase 49 Assessment & Plan Assessment & Plan narrative: 1. Atrial fibrillation with rapid response, present on admission and improving. He does not use alcohol. None for 6 years. This related to his initial atrial fibrillation. 2. Occasional use of marijuana with a vape, present on admission and active. Plan: Start metoprolol 12.5 b.i.d., wean diltiazem drip. Start apixaban 5 b.i.d. Anticipate 1 midnight in the hospital, supports observation status. Full code Proxy is , they live in [place]. Time-Based Coding :: 35 min spent with patient and on the chart (including review of chart, obtaining history, exam, reviewing outside data, placing orders, documenting exam and treatment plan, and counseling patient) on 05/12. Quality MIPS - Admit I confirm the patient?s Advance Care Plan is present, Code status is documented, Surrogate decision maker is in patient?s record [If Yes, STOP here]: Yes MIPS - Meds 'Current medications' to include all prescriptions, [id number] products, herbals, cannabis/cannabidiol products, and vitamin/mineral/dietary (nutritional) supplements. I have utilized all available resources to obtain, update, or review the patient?s current medications. [If Yes, STOP here]: Yes
[2024-05-12] MEDS: METOPROLOL IR 25 MG TABLET PO ×3 (14:24→23:42)
[2024-05-12] MEDS: APIXABAN 5 MG TABLET PO (21:20)
[2024-05-12 23:31] LABS: MRSA (Nasal) PCR NOT DETECTED (Not Detect)
[2024-05-13] VITALS (36 sets, daily range): BP systolic 93–127; BP diastolic 54–86; PULSE 84–125; RESP 0–48; TEMP 36.2–36.4; O2SAT 95
[2024-05-13] MEDS: SODIUM CHLORIDE 0.9% 500 ML 1000 ML IV (02:35)
[2024-05-13] MEDS: SODIUM CHLORIDE 0.9% FLUSH 10 ML IV ×4 (02:43→09:16)
[2024-05-13] MEDS: DIGOXIN 500 MCG/2 ML AMPUL IV (04:21)
[2024-05-13] MEDS: dilTIAZem 25 MG/5 ML SDV 10 MG IV (04:35)
[2024-05-13 06:28] LABS: Add Manual Diff / Slide Review NO; Basophils Absolute Auto 100 /uL (0-100); Basophils Percent Auto 0.8 % (0-2); Eosinophils Absolute Auto 200 /uL (0-450); Eosinophils Percent Auto 3.6 % (2-4); Hematocrit 51.2 % (41-53); Hemoglobin 17.5 g/dL (13.5-17.5); Lymphocytes Absolute Auto 1600 /uL (1100-4500); Lymphocytes Percent Auto 23.8 % (25-40); Mean Corpuscular HGB Conc 34.3 % (30-36); Mean Corpuscular Hemoglobin 29.4 PG (26-34); Mean Corpuscular Volume 85.9 fL (80-100); Monocytes Absolute Auto 600 /uL (0-900); Monocytes Percent Auto 9.4 % (3-14); Neutrophils Absolute Auto 4200 /uL (1500-7000); Neutrophils Percent Auto 62.4 % (50-75); Platelet Count 206 X10^3/uL (150-400); Red Blood Cell Count 5.96 X10^6/uL (4.5-5.9); White Blood Cell Count 6.8 X10^3/uL (4.5-11.0)
[2024-05-13 06:38] LABS: Alanine Aminotransferase 24 IU/L (<50); Albumin 3.8 g/dL (3.5-5.0); Albumin Globulin Ratio 1.3 (1.0-2.8); Alkaline Phosphatase 96 U/L (38-126); Aspartate Aminotransferase 25 IU/L (17-59); BUN Creatinine Ratio 21.1 (6-22); Bilirubin Total 0.6 mg/dL (0.2-1.3); Blood Urea Nitrogen 24 mg/dL (9-20); Calcium 8.8 mg/dL (8.4-10.2); Carbon Dioxide 27 mmol/L (22-32); Chloride 107 mmol/L (98-107); Estimated Glomerular Filt Rate > 60 mL/min (>60); Globulin 2.9 g/dL (1.7-4.1); Glucose 103 mg/dL (70-100); HEMOLYSIS 30 (0-50); Potassium 4.6 mmol/L (3.4-5.1); Sodium 138 mmol/L (137-145); Total Protein 6.7 g/dL (6.3-8.2)
--- NOTE | 2024-05-13 07:41 | PC.NURSE ---
Pt expresses concern of inability to have a normal life again. Pt stated, I won't be able to work like this, I don't know how much time I have left. Pt is visibly anxious with increased activity and sweating. Pt requires continued education reinforcement of medication adherence, lifesyle modifications, and development of effective coping skills.
[2024-05-13] MEDS: APIXABAN 5 MG TABLET PO (09:14)
[2024-05-13] MEDS: METOPROLOL IR 25 MG TABLET PO (09:16)
[2024-05-13] MEDS: dilTIAZem SR 60 MG 120 MG PO (10:28)
--- NOTE | 2024-05-13 12:33 | P.DS_ITS ---
History of Present Illness History of Present Illness Date Patient Seen: 05/13/24 Time Patient Seen: 11:30 Date of Onset of Symptoms: 05/12/24 Chief complaint: afib since thursday Narrative: The patient is being admitted for observation today for atrial fibrillation with rapid response. He has history of a an ablation in 2021 at [facility]. The patient has not had AFib since until Thursday. He has been AFib since Thursday with racing heart rate. He went would be General where he was given oral diltiazem. He remains in AFib with rapid response and heart rates up to 160. The patient was seen in the ER and started on diltiazem drip. They did alert his airplane pilot photogrammetry, Dr. Ocasio. Recommendations for rate control and oral anticoagulation giving the window and no recommendation for ELAINE cardioversion at [facility] at this time. The patient notes symptoms of tachycardia but no chest pain or dyspnea. He was much better with a diltiazem drip at 5, and he has a heart rate of 78. The patient notes his diltiazem tablets from would be did not control his rate. He was hoping to try a different medication. Discharge Providers Provider Date of admission: 05/12/24 12:12 Discharge Date: 05/13/24 Primary care physician: Mere Cavazos PA-C Discharge provider: Anish Parham MD Summary Hospital Course Discharge Diagnosis: 1. Atrial fibrillation with rapid response, present on admission and resolved spontaneously. 2. Occasional use of marijuana with a vape, present on admission and active. Hospital Course: The patient was admitted and treated with IV diltiazem infusion, started on metoprolol, with heart rates controlled, and spontaneously converting to sinus rhythm secondary hospitalization. He was treated with apixaban 5 mg twice daily. He was feeling significantly better and interested in discharge home. He had used marijuana several hours prior to the episode, in a large quantity he states, and also had been consuming caffeine. He was advised to limit or avoid these possible precipitants. Follow-up through his primary care provider and Cardiology is recommended. No other issues arose. He was advised to continue on metoprolol and apixaban for 1 month. Status at Discharge Cognitive/behavioral status at discharge: oriented Functional status at discharge: independent ambulation Overall status at discharge: patient is back to baseline Time Spent with Patient Time spent: Less than 30 minutes Exam Vital Signs (past 8 hours): - 05/13/24 04:35 05/13/24 04:52 05/13/24 05:00 Temperature Pulse Rate 110 H 87 Respiratory Rate 15 Blood Pressure 119/61 114/77 Oxygen Delivery Method 05/13/24 05:00 05/13/24 05:15 05/13/24 05:15 Temperature Pulse Rate 88 87 Respiratory Rate 15 17 Blood Pressure 108/76 Oxygen Delivery Method 05/13/24 05:30 05/13/24 05:30 05/13/24 05:46 Temperature Pulse Rate 89 92 H Respiratory Rate 16 17 Blood Pressure 99/70 Oxygen Delivery Method 05/13/24 05:46 05/13/24 06:00 05/13/24 06:00 Temperature Pulse Rate 91 H Respiratory Rate 19 Blood Pressure 117/62 107/59 L Oxygen Delivery Method 05/13/24 06:15 05/13/24 06:15 05/13/24 06:30 Temperature Pulse Rate 92 H 93 H Respiratory Rate 22 21 Blood Pressure 115/79 Oxygen Delivery Method 05/13/24 06:30 05/13/24 06:45 05/13/24 06:45 Temperature Pulse Rate 101 H Respiratory Rate 20 Blood Pressure 108/73 105/64 Oxygen Delivery Method 05/13/24 07:00 05/13/24 07:00 05/13/24 07:00 Temperature Pulse Rate 95 H Respiratory Rate 19 Blood Pressure 110/71 Oxygen Delivery Method Room Air 05/13/24 07:15 05/13/24 07:15 05/13/24 07:30 Temperature Pulse Rate 95 H Respiratory Rate 16 Blood Pressure 96/63 95/71 Oxygen Delivery Method 05/13/24 07:30 05/13/24 07:45 05/13/24 07:45 Temperature Pulse Rate 99 H 94 H Respiratory Rate 22 14 Blood Pressure 97/76 Oxygen Delivery Method 05/13/24 08:00 05/13/24 08:00 05/13/24 08:01 Temperature 97.5 F L Pulse Rate 98 H Respiratory Rate 10 L Blood Pressure 127/71 Oxygen Delivery Method 05/13/24 08:01 05/13/24 08:30 05/13/24 09:00 Temperature Pulse Rate 99 H 101 H 125 H Respiratory Rate 21 21 48 H Blood Pressure Oxygen Delivery Method 05/13/24 09:30 05/13/24 10:05 05/13/24 10:05 Temperature Pulse Rate 105 H 94 H Respiratory Rate 34 H 19 Blood Pressure 111/86 Oxygen Delivery Method 05/13/24 10:30 05/13/24 11:00 05/13/24 11:30 Temperature Pulse Rate 85 85 87 Respiratory Rate 20 11 L 0 L Blood Pressure Oxygen Delivery Method 05/13/24 12:00 Temperature Pulse Rate 84 Respiratory Rate 22 Blood Pressure 111/86 Oxygen Delivery Method Oxygen Delivery Method Room Air Oxygen Flow Rate 0 Narrative Exam Narrative: NAD, alert and oriented, fluent speech, calm. Normocephalic skull, EOMI, anicteric sclera, symmetric pupils. Oropharynx unremarkable, no droop. Neck supple, midline trachea, no adenopathy. Lungs clear, normal rate and effort. Heart regular, no murmur gallop or rub. Abdomen is soft, non distended and non tender. Extremities are free of edema. Skin is free of rash or lesions. Judgment appears to be normal. Objective ECG Impression: Atrial fibrillation with rapid ventricular response at 125 beats per minute Imaging Chest x-ray: Radiologist's impression: Mild congestion. No focal infiltrate, pleural effusion or pneumothorax. Labs 05/13/24 06:05 05/13/24 06:05 Labs: Laboratory Results - last 24 hr 05/12/24 05/13/24 21:30 06:05 WBC 6.8 RBC 5.96 H Hgb 17.5 Hct 51.2 MCV 85.9 MCH 29.4 MCHC 34.3 RDW 13.0 Plt Count 206 Neut % (Auto) 62.4 Lymph % (Auto) 23.8 L [place] % (Auto) 9.4 Eos % (Auto) 3.6 Baso % (Auto) 0.8 Neut # (Auto) 4200 Lymph # (Auto) 1600 [place] # (Auto) 600 Eos # (Auto) 200 Baso # (Auto) 100 Sodium 138 Potassium 4.6 Chloride 107 Carbon Dioxide 27 BUN 24 H Creatinine 1.14 Estimated GFR > 60 BUN/Creatinine Ratio 21.1 Glucose 103 H Calcium 8.8 Total Bilirubin 0.6 AST 25 ALT 24 Alkaline Phosphatase 96 Total Protein 6.7 Albumin 3.8 Globulin 2.9 Albumin/Globulin Ratio 1.3 Nasal Screen MRSA (PCR) Not detected [facility] Medical History Atrial fibrillation Personal history of alcoholism Tobacco abuse Surgical History History of lumbar discectomy Family History Father Myocardial infarction Mother Depression Dementia Social History household members: spouse Smoking Status: Former smoker alcohol intake: former Discharge Plan Discharge Plan Patient Disposition: Home Provider Discharge Comment: Followup with PCP [address] Ocasio within 1 month Discharge orders & Medications Prescriptions: New Eliquis 5 mg Tablet 5 mg PO BID Qty: 60 0RF metoprolol succinate 50 mg tablet extended release 24 hr 50 mg PO DAILY Qty: 30 0RF Continued pantoprazole 40 mg tablet,delayed release (DR/EC) 40 mg PO DAILY Qty: 30 0RF Follow up/Referrals: Mere Cavazos PA-C [Primary Care Provider] - ([employer] will contact you with a follow up appointment and refreal to cardiology ) Preston Ocasio MD [Physician] - Visit Report/Discharge Packet Stand Alone Forms: Patient Portal/API, Stroke Signs & Symptoms Discharge Data Primary Care Provider: Mere Cavazos Quality MIPS - Admit I confirm the patient?s Advance Care Plan is present, Code status is documented, Surrogate decision maker is in patient?s record [If Yes, STOP here]: Yes MIPS - Meds 'Current medications' to include all prescriptions, [id number] products, herbals, cannabis/cannabidiol products, and vitamin/mineral/dietary (nutritional) supplements. I have utilized all available resources to obtain, update, or review the patient?s current medications. [If Yes, STOP here]: Yes MIPS - DC The patient has a history of heart transplant or Left Ventricular Assist Device (LVAD). If yes, STOP here.: No The patient has current or prior documentation of left ventricular ejection fraction (LVEF) less than or equal to 40%, or moderate or severely depressed left ventricular systolic function.: No A. The patient was prescribed or already taking an Angiotensin-Converting Enzyme (INDRA) Inhibitor, or Angiotensin Receptor Daniella (ARB).: No B. The patient was prescribed or already taking a beta-daniella. [If Yes to Both A & B, STOP here]: Yes Patient not prescribed/taking INDRA or ARB, no reason given.: No Patient not prescribed/taking beta-daniella, no reason given.: No PROFEE Charge Codes Discharge inpatient/observation: [id number]
--- NOTE | 2024-05-13 13:39 | PC.NURSE ---
Nursing discharge note: thorough instructions given to pt regarding importance of taking cardiac meds regularly - and signs and symptoms of stroke explained and pt states understanding. Special precautions explained regarding taking blood thinners, ie rising slowly, taking care not to fall, pt expresses understanding.
--- NOTE | 2024-05-14 09:07 | CM.DPNOTE ---
DCP Note F/u phone call post dc: received vm from pt's spouse re: expense of elloquis. called back, recommended to reach out to ins company and see if there's an alternative med (xeralto or warfrin) that they would rec instead and to follow up with the PCP. spouse appreciated the update. IMANI John
== END 2024-05-13 13:38 | disposition home or self-care (01) ==
LOC: ED 08:18 → AC 12:41 → ICU 13:17 → AC 05-13 13:07 → ICU 05-13 13:07
PROVIDERS: Internal Medicine; Admitting Provider Hospitalist; Emergency Provider Emergency Medicine; PCP Physician Assistant; Referring Provider Emergency Medicine; Visit Provider Hospitalist
DX: I48.91 Unspecified atrial fibrillation (principal); F12.90 Cannabis use, unspecified, uncomplicated; Z87.891 Personal history of nicotine dependence
CPT/HCPCS: 36415; 71045; 80053; 82550; 83690; 83735; 83880; 84484; 85025; 85610; 85730; 87797; 93005; 93010; 96361; 96365; 96366; 96375; 96376; 99284; G0378; J1160

== ENCOUNTER → 2025-01-14 08:19 | Outpatient (CLI) | payer OTHER, SELFPAY ==
[2024-05-12 12:16] VITALS: BMI 26.1
[2025-01-14 09:34] LABS: Add Manual Diff / Slide Review NO; Hematocrit 47.6 % (41-53); Hemoglobin 16.6 g/dL (13.5-17.5); Lymphocytes Absolute Auto 1600 /uL (1100-4500); Mean Corpuscular HGB Conc 34.9 % (30-36); Mean Corpuscular Hemoglobin 29.2 PG (26-34); Mean Corpuscular Volume 83.7 fL (80-100); Platelet Count 205 X10^3/uL (150-400)
[2025-01-14 09:56] LABS: Alanine Aminotransferase 32 IU/L (<50); Albumin 3.9 g/dL (3.5-5.0); Albumin Globulin Ratio 1.2 (1.0-2.8); Alkaline Phosphatase 93 U/L (38-126); Blood Urea Nitrogen 20 mg/dL (9-20); Calcium 8.6 mg/dL (8.4-10.2); Carbon Dioxide 27 mmol/L (22-32); Chloride 107 mmol/L (98-107); Cholesterol 180 mg/dL (140-199); Estimated Glomerular Filt Rate > 60 mL/min (>60); Globulin 3.3 g/dL (1.7-4.1); Glucose 104 mg/dL (70-99); HDL Cholesterol 46 mg/dL (40-60); HEMOLYSIS < 15 (0-50); Sodium 140 mmol/L (137-145); Total Protein 7.2 g/dL (6.3-8.2); Triglycerides 115 mg/dL (35-150)
[2025-01-14 10:32] LABS: Potassium 4.7 mmol/L (3.4-5.1)
== END ==
PROVIDERS: PCP Family Medicine; Referring Provider Family Medicine; Visit Provider Family Medicine
DX: I48.91 Unspecified atrial fibrillation (principal); Z13.220 Encounter for screening for lipoid disorders
CPT/HCPCS: 36415; 80053; 80061; 85025